=== PATIENT | female | born 1945 ===

== ENCOUNTER 2017-07-22 12:36 | Inpatient (IN) | payer MEDICARE ==
[2017-07-22 12:44] VITALS: BMI 26.4
[2017-07-22] MEDS ORDERED: Sodium Chloride 0.9% 500 ML IV STA (13:09)
--- NOTE | 2017-07-22 13:21 | ED PDOC ---
Arrival/HPI - General Historian: Patient, Family (daughter) - History of Present Illness Time/Duration: Other (see hpi) Context: Home - General Chief Complaint: GI Problem Time Seen by Provider: 07/22/17 12:37 - History of Present Illness Narrative History of Present Illness (Text): 07/22/17 13:00 This 72 yo female with pmh HT, hyperlipidemia, presents to this ED c/o nausea, and diarrhea since yesterday. Patient stated she developed epigastric pain last night. Patient noted she later developed nausea, and watery diarrhea. Patient has had at least 10 BM without rectal bleeding. Today, patient feels weak, and unable to ambulate due to her feeling generalized weakness. She stated she does not feel well, she feels dizzy, and she feels she is going to "pass out". Patient noted epigastric pain has improved. Denies recent travel, sick contact , fever, sob, cp, urinary symptoms, vaginal discharge, rectal bleeding, vaginal bleeding, hematuria, cms, REYES, or local focal weakness. (Kedar Galicia) Past Medical History - Provider Review Nursing Documentation Reviewed: Yes - Infectious Disease Hx of Infectious Diseases: None - Tetanus Immunization Tetanus Immunization: Unknown - Cardiac Hx Cardiac Disorders: Yes Hx Hypertension: Yes - Pulmonary Hx Respiratory Disorders: No - Neurological Hx Neurological Disorder: No - HEENT Hx HEENT Disorder: No - Renal Hx Renal Disorder: No - Endocrine/Metabolic Hx Endocrine Disorders: Yes Hx Diabetes Mellitus Type 2: Yes - Hematological/Oncological Hx Blood Disorders: No - Integumentary Hx Dermatological Disorder: No - Musculoskeletal/Rheumatological Hx Arthritis: Yes (RA) Hx Falls: No Other/Comment: Rheumatoid arthritis - Gastrointestinal Hx Gastrointestinal Disorders: No - Genitourinary/Gynecological Hx Urinary Tract Infection: Yes - Psychiatric Hx Psychophysiologic Disorder: No Hx Substance Use: No - Surgical History Hx Appendectomy: Yes Hx Hysterectomy: Yes Hx Tonsillectomy: Yes Other/Comment: endoscopy and colonoscopy - Anesthesia Hx Anesthesia: Yes Hx Anesthesia Reactions: No Hx Malignant Hyperthermia: No - Suicidal Assessment Feels Threatened In Home Enviroment: No Family/Social History - Physician Review Nursing Documentation Reviewed: Yes Family/Social History: Other (non-contributory) Smoking Status: Never Smoked Hx Alcohol Use: No Hx Substance Use: No Hx Substance Use Treatment: No Allergies/Home Meds Allergies/Adverse Reactions: Allergies No Known Allergies Allergy (Verified 03/28/15 22:43) Home Medications: Home Meds Medication Instructions Recorded Confirmed Folic Acid 2,000 mcg PO DAILY 03/01/13 07/22/17 Meloxicam 7.5 mg PO DAILY PRN 03/01/13 07/22/17 Fenofibric Acid (Choline) 135 mg PO DAILY 03/28/15 07/22/17 [Trilipix] Gabapentin 300 mg PO BID 03/28/15 07/22/17 Amlodipine Bes/Olmesartan Med 1 tab PO DAILY 07/22/17 07/22/17 [Marce 5-20 mg Tablet] Cholecalciferol [Vitamin D 1000 IU] 1 tab PO DAILY 07/22/17 07/22/17 Glimepiride [amaRYL] 1 tab PO BID 07/22/17 07/22/17 Linagliptin/Metformin HCl 1 tab PO BID 07/22/17 07/22/17 [Jentadueto 2.5 mg-1000 mg Tab] Methotrexate [Methotrexate] 1 vial INJ Q7D 07/22/17 07/22/17 Review of Systems - Review of Systems Constitutional: Fatigue. absent: Weight Change, Fevers, Night Sweats Eyes: Normal ENT: Normal Respiratory: Normal. absent: SOB, Cough Cardiovascular: Normal. absent: Chest Pain, Palpitations Gastrointestinal: Abdominal Pain (epigastric pain), Diarrhea, Nausea, Anorexia. absent: Constipation, Vomiting, Hematochezia, Hematemesis, Food Intolerance Genitourinary Female: Normal. absent: Dysuria, Frequency, Hematuria, Urine Output Changes, Vaginal Bleeding, Vaginal Discharge Musculoskeletal: Normal. absent: Back Pain, Neck Pain Skin: Normal. absent: Rash Neurological: Dizziness. absent: Headache, Focal Weakness, Gait Changes, Speech Changes, Facial Droop, Disequilibrium, Seizure Endocrine: Normal Hemo/Lymphatic: Normal Psychiatric: Normal Physical Exam Temperature: Afebrile Blood Pressure: Normal Pulse: Regular Respiratory Rate: Normal Appearance: Positive for: Well-Appearing, Non-Toxic, Comfortable Pain Distress: None Mental Status: Positive for: Alert and Oriented X 3 Finger Stick Blood Glucose: 295 - Systems Exam Head: Present: Atraumatic, Normocephalic Pupils: Present: PERRL Extroacular Muscles: Present: EOMI Conjunctiva: Present: Normal Mouth: Present: Moist Mucous Membranes Neck: Present: Normal Range of Motion Respiratory/Chest: Present: Clear to Auscultation, Good Air Exchange. No: Respiratory Distress, Accessory Muscle Use Cardiovascular: Present: Regular Rate and Rhythm, Normal S1, S2. No: Murmurs Abdomen: Present: Normal Bowel Sounds, Scars, Other (s/p appendectomy). No: Tenderness, Distention, Peritoneal Signs, Rebound, Guarding Back: Present: Normal Inspection Upper Extremity: Present: Normal Inspection. No: Cyanosis, Edema Lower Extremity: Present: Normal Inspection. No: Edema Neurological: Present: GCS=15, CN II-XII Intact, Speech Normal Skin: Present: Warm, Dry, Normal Color. No: Rashes Psychiatric: Present: Alert, Oriented x 3, Normal Insight, Normal Concentration Vital Signs Temp Pulse Resp BP Pulse Ox 07/22/17 15:14 98.1 F 102 H 18 142/85 99 07/22/17 14:15 106 H 18 140/116 H 100 07/22/17 14:06 107 H 16 148/94 H 98 07/22/17 13:57 116 H 20 157/99 H 98 07/22/17 13:42 100.6 F H 07/22/17 12:46 98.6 F 118 H 18 139/93 H 96 Medical Decision Making Re-evaluation Time: 17:00 Reassessment Condition: Re-examined, Improving,but remains with symptoms - Lab Interpretations I have reviewed the lab results: Yes Interpretation: Abnormal lab values - EKG Interpretation Interpreted by ED Physician: Yes (sinus tachycardia @ [address] changes) Type: 12 lead EKG Comparison: No previous EKG avail. ED Course and Treatment: 07/22/17 14:35 Patient seen and evaluated with PA. On exam, the patient currently with no peritoneal signs, MILD epigastric pain. She is tachycardic, but not hypotensive. Lactate elevated associated with tachycardia and fever. CODE SEPSIS initiated and iv fluid bolus ordered as well as iv antibiotics. Patient currently appears comfortable, in no respiratory distress. CT pending. 07/22/17 16:59 CT results reviewed. Based on history of sudden onset of epigastric pain, intermittent, suspect possible cholelithiasis. Surgery consulted as there is history of fever and elevated lactate. Patient admitted to hospitalist service, covering for patient's PMD. Treatment plan reviewed with patient and family. (Don Flowers) 07/22/17 17:00 I had spoke with Dr. Duvall regarding Sepsis criteria, abnormal CT scan. We reviewed labs, ct scan report. He agrees with plan for admission. 07/22/17 17:04 I spoke with patient and daughter regarding CT scan result, and labs report. Patient and family member agrees with plan or admission. (Kedar Galicia) - Lab Interpretations Lab Results: 07/22/17 13:30 07/22/17 13:30 Lab Results 07/22/17 14:20: Urine Color Yellow, Urine Appearance Sl cloudy, Urine pH 5.5, Ur Specific [place] 1.025, Urine Protein Trace H, Urine Glucose (UA) 500 H, Urine Ketones Trace H, Urine Blood Negative, Urine Nitrate Negative, Urine Bilirubin Negative, Urine Urobilinogen 0.2, Ur Leukocyte Esterase Negative, Urine RBC 0 - 2, Urine WBC 0 - 2, Ur Epithelial Cells 0 - 2, Urine Bacteria Trace, Hyaline Casts 0 - 2 07/22/17 13:30: Sodium 136, Chloride 100, Potassium 4.4, Carbon Dioxide 23, Anion Gap 17, BUN 16, Creatinine 0.7, Est GFR ( Amer) > 60, Est GFR (Non- Af Amer) > 60, Random Glucose 279 H, Calcium 9.4, Phosphorus 3.1, Magnesium 1.3 L, Total Bilirubin 1.0, AST 30, ALT 31, Alkaline Phosphatase 98, Lactate Dehydrogenase 457, Total Creatine Kinase 97, Troponin I < 0.01, NT-Pro-B Natriuret Pep 99.0, Total Protein 7.8, Albumin 4.4, Globulin 3.4, Albumin/ Globulin Ratio 1.3, Lipase 151 07/22/17 13:30: pO2 32, VBG pH 7.34, VBG pCO2 48.0, VBG HCO3 25.9, VBG Total CO2 27.4, VBG O2 Sat (Calc) 65.1 H, VBG Base Excess -0.4 L, VBG Potassium 5.6 H , Sodium 134.0, Chloride 99.0, Glucose 305 H, Lactate 3.9 H, FiO2 21.0, Venous Blood Potassium 5.6 H 07/22/17 13:30: PT 10.6, INR 0.98, APTT 26.6 07/22/17 13:30: WBC 8.8, RBC 4.83, Hgb 14.5, Hct 42.4, MCV 87.8, MCH 30.0, MCHC 34.2, RDW 14.0, Plt Count 240, MPV 10.9, Gran % 81.1 H, Lymph % (Auto) 12.4 L, [place] % (Auto) 6.2 H, Eos % (Auto) 0.1 L, Baso % (Auto) 0.2, Gran # 7.16 H, Lymph # 1.1 L, [place] # 0.6, Eos # 0.0, Baso # 0.02 - RAD Interpretation Narrative RAD Interpretations (Text): 07/22/17 13:27 Accession No. : [id number] Patient Name / ID : ROSE RAMIREZ / [id number] Exam Date : 07/22/2017 13:15:35 ( Approved ) Study Comment : Sex / Age : F / 72Y Creator : Pete Kumar MD Dictator : Pete Kumar MD [employer] : [employer] Dresser : Pete Kumar MD Approver2 : Report Date : 07/22/2017 13:25:09 My Comment : HISTORY: Sepsis Patient COMPARISON: No prior. FINDINGS: LUNGS: No acute infiltrate bilaterally. Improved inspiratory volume is noted bilaterally. PLEURA: No significant pleural effusion identified, no pneumothorax apparent. CARDIOVASCULAR: Normal. OSSEOUS STRUCTURES: No significant abnormalities. VISUALIZED UPPER ABDOMEN: Normal. OTHER FINDINGS: None. IMPRESSION: Increased inspiratory volume is apparent. No interval acute cardiopulmonary disease appreciable. 07/22/17 17:00 PROCEDURE: CT Abdomen and Pelvis without intravenous contrast HISTORY: epigastric pain COMPARISON: Abdomen pelvis CT examination 03/26/2017. TECHNIQUE: Helical CT of the abdomen and pelvis was performed without oral or intravenous contrast as per referring physician request . Contrast Dose: None Radiation dose: Total exam DLP = 831.70 mGy-cm. This CT exam was performed using one or more of the following dose reduction techniques: Automated exposure control, adjustment of the mA and/or kV according to patient size, and/or use of iterative reconstruction technique. FINDINGS: LOWER THORAX: Unremarkable. LIVER: Unremarkable. No gross lesion or ductal dilatation. GALLBLADDER AND BILE DUCTS: Distended with limited cholelithiasis questioned at the dependent neck. No mural thickening or pericholecystic fluid collection to associated pole cholecystitis radiographically. Clinically correlate further. PANCREAS: Unremarkable. No gross lesion or ductal dilatation. SPLEEN: Unremarkable. ADRENALS: Unremarkable. No mass. KIDNEYS AND URETERS: Punctate intrarenal calculus identified in the upper pole right kidney which is nonobstructive. None is seen at the left. Left kidney appears unremarkable. VASCULATURE: Unremarkable. No aortic aneurysm. BOWEL: Limited sigmoid diverticulosis without definite diverticulitis. No small or large bowel obstruction. The stomach appears collapsed. APPENDIX: Unremarkable. Normal appendix. PERITONEUM: Unremarkable. No free fluid. No free air. LYMPH NODES: Unremarkable. No enlarged lymph nodes. BLADDER: Unremarkable. REPRODUCTIVE: Unremarkable. BONES: Prior hysterectomy. OTHER FINDINGS: Left buttocks injection granuloma. IMPRESSION: 1. Questionable cholelithiasis within a distended gallbladder with no other acute findings associated by standard CT criteria. Clinically correlate for cholecystitis nevertheless. 2. Punctate nonobstructing intrarenal calculus right kidney. 3. Nonacute sigmoid diverticulosis limited in evaluation due lack of oral and intravenous contrast agents. 4. Prior hysterectomy. 5. Overall findings are similar to prior abdomen pelvis CT exam dated 2016. (Kedar Galicia) Radiology Orders: 07/22/17 13:06 CHEST PORTABLE [RAD] Stat 07/22/17 13:15 ABD & PELVIS W/O PO OR IV CONT [CT] Stat 07/22/17 14:01 HEAD W/O CONTRAST [CT] Stat 07/22/17 14:02 CHEST W/O CONTRAST [CT] Stat - Medication Orders Current Medication Orders: Acetaminophen (Tylenol 325mg Tab) 650 mg PO Q6 PRN PRN Reason: Fever >100.4 F Amlodipine Besylate (Norvasc) 5 mg PO DAILY [facility] Cholecalciferol (Vitamin D) 1,000 iu PO DAILY [facility] Folic Acid (Folic Acid) 2 mg PO DAILY [facility] Gabapentin (Neurontin) 300 mg PO BID [facility] PRN Reason: Protocol Metronidazole (Flagyl) 500 mg in 100 mls @ 100 mls/hr IVPB Q8 [facility] PRN Reason: Protocol Ceftriaxone Sodium (Rocephin 1 Gram Ivpb) 1 gm in 100 mls @ 100 mls/hr IVPB DAILY [facility] PRN Reason: Protocol Sodium Chloride (Sodium Chloride 0.9%) 1,000 mls @ 110 mls/hr IV .Q9H6M [facility] Insulin Human Regular (Humulin R) 0 units SC ACHS [facility] PRN Reason: Protocol Losartan Potassium (Cozaar) 50 mg PO DAILY [facility] Meloxicam (Mobic) 7.5 mg PO DAILY PRN PRN Reason: Pain Ondansetron HCl (Zofran Inj) 4 mg IVP Q6 PRN PRN Reason: Nausea/Vomiting Pantoprazole Sodium (Protonix Ec Tab) 40 mg PO DAILY [facility] Discontinued Medications Acetaminophen (Tylenol 325mg Tab) 650 mg PO ONCE STA Stop: 07/22/17 14:35 Last Admin: 07/22/17 15:17 Dose: Not Given Non-Admin Reason: Patient Refused Sodium Chloride (Sodium Chloride 0.9%) 500 mls @ 999 mls/hr IV .Q31M STA Stop: 07/22/17 13:39 Last Admin: 07/22/17 13:36 Dose: 999 mls/hr eMAR Start Stop Document 07/22/17 13:36 SF (Rec: 07/22/17 13:37 SF [id number] Intravenous Solution Start Date 07/22/17 Start Time 13:37 End Date 07/22/17 End time 14:07 Total Infusion Time 30 Sodium Chloride (Sodium Chloride 0.9%) 1,700 mls @ 999 mls/hr IV .Q1H43M STA Stop: 07/22/17 15:40 Last Admin: 07/22/17 14:10 Dose: 999 mls/hr eMAR Start Stop Document 07/22/17 14:10 CNR (Rec: 07/22/17 14:10 CNR [id number]) Intravenous Solution Start Date 07/22/17 Start Time 14:10 Metronidazole (Flagyl) 500 mg in 100 mls @ 100 mls/hr IVPB STAT STA PRN Reason: Protocol Stop: 07/22/17 15:20 Last Admin: 07/22/17 17:36 Dose: 100 mls/hr eMAR Start Stop Document 07/22/17 17:36 OCS (Rec: 07/22/17 17:37 OCS [id number]) Intravenous Solution Start Date 07/22/17 Start Time 17:37 Ceftriaxone Sodium (Rocephin 1 Gram Ivpb) 1 gm in 100 mls @ 200 mls/hr IVPB STAT STA PRN Reason: Protocol Stop: 07/22/17 14:51 Last Admin: 07/22/17 14:33 Dose: 200 mls/hr eMAR Start Stop Document 07/22/17 14:33 GMD (Rec: 07/22/17 14:33 GMD [id number]) Intravenous Solution Start Date 07/22/17 Start Time 14:33 End Date 07/22/17 End time 15:03 Total Infusion Time 30 Ondansetron HCl (Zofran Inj) 4 mg IVP STAT STA Stop: 07/22/17 13:14 Last Admin: 07/22/17 13:38 Dose: 4 mg IVP Administration Document 07/22/17 13:38 CNR (Rec: 07/22/17 13:39 CNR [facility] [id number]) Charges for Administration # of IVP Administrations 1 Disposition/Present on Arrival - Present on Arrival Any Indicators Present on Arrival: No History of DVT/PE: No History of Uncontrolled Diabetes: No Urinary Catheter: No History of Decub. Ulcer: No History Surgical Site Infection Following: None - Disposition Have Diagnosis and Disposition been Completed?: Yes Disposition Time: 17:00 - Disposition Diagnosis: Sepsis, Abnormal gall bladder diagnostic imaging, Diarrhea Disposition: HOSPITALIZED Patient Problems: Current Active Problems Problem Status Onset Abnormal gall bladder diagnostic imaging Acute Diarrhea Acute Sepsis Acute Condition: GOOD
--- NOTE | 2017-07-22 13:26 | RAD ---
HISTORY: Sepsis Patient COMPARISON: No prior. FINDINGS: LUNGS: No acute infiltrate bilaterally. Improved inspiratory volume is noted bilaterally. PLEURA: No significant pleural effusion identified, no pneumothorax apparent. CARDIOVASCULAR: Normal. OSSEOUS STRUCTURES: No significant abnormalities. VISUALIZED UPPER ABDOMEN: Normal. OTHER FINDINGS: None. IMPRESSION: Increased inspiratory volume is apparent. No interval acute cardiopulmonary disease appreciable.
[2017-07-22 13:51] LABS: VENOUS BLOOD GAS BASE EXCESS -0.4 mmol/L (0.0-2.0); VENOUS BLOOD PH 7.34 (7.32-7.43)
[2017-07-22 13:53] LABS: BASO # 0.02 K/mm3 (0.0-2.0); BASO % 0.2 % (0.0-3.0); EOS % 0.1 % (1.5-5.0); GRAN # 7.16 (1.4-6.5); GRAN % 81.1 % (50.0-68.0); HEMATOCRIT 42.4 % (36.0-48.0); LYMPH # 1.1 (1.2-3.4); LYMPH % 12.4 % (22.0-35.0); MEAN CELL VOLUME 87.8 fl (80.0-105.0); MEAN CORPUSCULAR HGB CONC 34.2 g/dl (31.0-37.0); MEAN PLATELET VOLUME 10.9 fl (7.0-11.0); MONO # 0.6 (0.1-0.6); MONO % 6.2 % (1.0-6.0); WHITE BLOOD COUNT 8.8 10^3/ul (4.5-11.0)
[2017-07-22 14:02] LABS: INR 0.98 (0.93-1.08); PARTIAL THROMBOPLASTIN TIME 26.6 Seconds (23.7-30.8)
[2017-07-22 14:03] LABS: ALB/GLOB RATIO 1.3 (1.1-1.8); ALKALINE PHOSPHATASE 98 U/L (38-126); ALT/SGPT 31 U/L (7-56); AST/SGOT 30 U/L (14-36); BLOOD UREA NITROGEN 16 mg/dL (7-21); CALCIUM 9.4 mg/dL (8.4-10.5); CARBON DIOXIDE 23 mmol/L (21-33); CHLORIDE 100 mmol/L (98-107); GFR AFRICAN-AMERICAN > 60; GLUCOSE,RANDOM 279 mg/dL (70-110); LIPASE 151 U/L (23-300); MAGNESIUM 1.3 mg/dL (1.7-2.2); PHOSPHOROUS 3.1 mg/dL (2.5-4.5); POTASSIUM 4.4 mmol/L (3.6-5.0); SODIUM 136 mmol/L (132-148); TOTAL PROTEIN 7.8 g/dL (5.8-8.3)
[2017-07-22 14:17] LABS: TROPONIN I < 0.01 ng/mL
[2017-07-22] MEDS ORDERED: metroNIDAZOLE IV 500 mg/100 ml 500 MG/100 ML BAG IVPB STA (14:21)
[2017-07-22] MEDS ORDERED: cefTRIAXone 1 gm 1 GM/100 ML BAG IVPB STA (14:22)
--- NOTE | 2017-07-22 14:32 | PCM.SEPTIC ---
Sepsis Progress Note - Reassessment Type Date of Evaluation: 07/22/17 Time of Evaluation: 07:30 Reassessment Type: Non-invasive reassessment - Non Invasive Reassessment Were the most recent vital sign reviewed: Yes Vital Sign (Latest): Temp Pulse Resp BP Pulse Ox 100.6 F H 106 H 18 140/116 H 100 07/22/17 13:42 07/22/17 14:15 07/22/17 14:15 07/22/17 14:15 07/22/17 14:15 Cardiovascular: Yes: Regular Rate, Rhythm Respiratory: Yes: Normal Breath Sounds Capillary Refill: Normal (Less than 2 sec) Skin: Normal Color
[2017-07-22 14:37] LABS: PH,URINE 5.5 (4.7-8.0); URINE BILIRUBIN NEGATIVE (NEGATIVE); URINE BLOOD NEGATIVE (NEGATIVE); URINE GLUCOSE (UA) 500 mg/dL (NEGATIVE); URINE KETONE TRACE mg/dL (NEGATIVE); URINE LEUKOCYTE ESTERASE NEGATIVE Leu/uL (NEGATIVE); URINE PROTEIN TRACE mg/dL (<30 mg/dL); URINE UROBILINOGEN 0.2 E.U./dL (<1 E.U./dL)
[2017-07-22 14:40] LABS: URINE APPEARANCE SL CLOUDY (CLEAR); URINE COLOR YELLOW (YELLOW)
--- NOTE | 2017-07-22 14:41 | CT ---
PROCEDURE: CT Abdomen and Pelvis without intravenous contrast HISTORY: epigastric pain COMPARISON: Abdomen pelvis CT examination 03/26/2017. TECHNIQUE: Helical CT of the abdomen and pelvis was performed without oral or intravenous contrast as per referring physician request . Contrast Dose: None Radiation dose: Total exam DLP = 831.70 mGy-cm. This CT exam was performed using one or more of the following dose reduction techniques: Automated exposure control, adjustment of the mA and/or kV according to patient size, and/or use of iterative reconstruction technique. FINDINGS: LOWER THORAX: Unremarkable. LIVER: Unremarkable. No gross lesion or ductal dilatation. GALLBLADDER AND BILE DUCTS: Distended with limited cholelithiasis questioned at the dependent neck. No mural thickening or pericholecystic fluid collection to associated pole cholecystitis radiographically. Clinically correlate further. PANCREAS: Unremarkable. No gross lesion or ductal dilatation. SPLEEN: Unremarkable. ADRENALS: Unremarkable. No mass. KIDNEYS AND URETERS: Punctate intrarenal calculus identified in the upper pole right kidney which is nonobstructive. None is seen at the left. Left kidney appears unremarkable. VASCULATURE: Unremarkable. No aortic aneurysm. BOWEL: Limited sigmoid diverticulosis without definite diverticulitis. No small or large bowel obstruction. The stomach appears collapsed. APPENDIX: Unremarkable. Normal appendix. PERITONEUM: Unremarkable. No free fluid. No free air. LYMPH NODES: Unremarkable. No enlarged lymph nodes. BLADDER: Unremarkable. REPRODUCTIVE: Unremarkable. BONES: Prior hysterectomy. OTHER FINDINGS: Left buttocks injection granuloma. IMPRESSION: 1. Questionable cholelithiasis within a distended gallbladder with no other acute findings associated by standard CT criteria. Clinically correlate for cholecystitis nevertheless. 2. Punctate nonobstructing intrarenal calculus right kidney. 3. Nonacute sigmoid diverticulosis limited in evaluation due lack of oral and intravenous contrast agents. 4. Prior hysterectomy. 5. Overall findings are similar to prior abdomen pelvis CT exam dated 03/26/2017.
[2017-07-22 14:43] LABS: URINE BACTERIA TRACE (NEG); URINE EPITHELIAL CELLS 0 - 2 /hpf (0-5); URINE RBC 0 - 2 /hpf (0-2); URINE WBC 0 - 2 /hpf (0-6)
--- NOTE | 2017-07-22 15:16 | CP.PCM.HP ---
<Rodrigo Ramos - Last Filed: 07/22/17 17:48> History of Present Illness - History of Present Illness History of Present Illness: H&P. Dr. Duvall 72yo F with PMHx of HTN, DM, RA, sigmoid diverticulosis here for evaluation of Nausea, diarrhea and epigastric pain. Patient states that she had nausea, epigastric pain which started yesterday at 5PM. Pain described as sharp, does not radiate, waxing and waning, resolved currently. She states that she also c/ o diarrhea which started last night at around 9PM and reports about 10 episodes of loose, liquid, diarrhea, non-bloody, non-dark, foul smelling. She does report nausea but no vomiting. She does report dizziness which started today around noon. She denies any sick contacts, no recent travel. She denies any fevers or chills. She does report a similar epigastric pain about a month ago. Denies CP/SOB. No Headache. Reports having an screening EGD/Colonoscopy about [address] Mota. Reports negative findings. PMD: Dr. Nima Alvarado PMHx: HTN, DM, RA, Sigmoid diverticulosis PSHx: Hysterectomy, Appendectomy, Tonsilectomy, R breast cyst removal (benign) Family Hx: Son-DM, [place]. Father-Cardiac disease Social Hx: Lives with son. Denies tobacco use, Denies ETOH, Denies illicit drugs NKDA Present on Admission - Present on Admission Any Indicators Present on Admission: No Review of Systems - Review of Systems All systems: reviewed and no additional remarkable complaints except - Constitutional Constitutional: absent: Chills, Fever, Headache - EENT Eyes: absent: Blurred Vision Ears: absent: Ear Pain Nose/Mouth/Throat: absent: Epistaxis - Cardiovascular Cardiovascular: Diaphoresis. absent: Chest Pain, Dyspnea, Edema - Respiratory Respiratory: absent: Dyspnea - Gastrointestinal Gastrointestinal: Abdominal Pain, Diarrhea, Nausea. absent: Hematemesis, Hematochezia, Vomiting - Genitourinary Genitourinary: absent: Dysuria - Musculoskeletal Musculoskeletal: absent: Back Pain - Neurological Neurological: Dizziness. absent: Confusion, Focal Weakness - Psychiatric Psychiatric: absent: Anxiety, Confusion Past Patient History - Infectious Disease Hx of Infectious Diseases: None - Tetanus Immunizations Tetanus Immunization: Unknown - Past Medical History & Family History Past Family History: Reviewed and not pertinent - Past Social History Smoking Status: Never Smoked Alcohol: None Drugs: Denies - CARDIAC Hx Cardiac Disorders: Yes Hx Hypertension: Yes - PULMONARY Hx Respiratory Disorders: No - NEUROLOGICAL Hx Neurological Disorder: No - HEENT Hx HEENT Problems: No - RENAL Hx Chronic Kidney Disease: No - ENDOCRINE/METABOLIC Hx Endocrine Disorders: Yes Hx Diabetes Mellitus Type 2: Yes - HEMATOLOGICAL/ONCOLOGICAL Hx Blood Disorders: No - INTEGUMENTARY Hx Dermatological Problems: No - MUSCULOSKELETAL/RHEUMATOLOGICAL Hx Arthritis: Yes (RA) Hx Falls: No Other/Comment: Rheumatoid arthritis - GASTROINTESTINAL Hx Gastrointestinal Disorders: No - GENITOURINARY/GYNECOLOGICAL Hx Urinary Tract Infection: Yes - PSYCHIATRIC Hx Psychophysiologic Disorder: No Hx Substance Use: No - SURGICAL HISTORY Hx Appendectomy: Yes Hx Hysterectomy: Yes Hx Tonsillectomy: Yes Other/Comment: endoscopy and colonoscopy - ANESTHESIA Hx Anesthesia: Yes Hx Anesthesia Reactions: No Hx Malignant Hyperthermia: No Meds Allergies/Adverse Reactions: Allergies Allergy/AdvReac Type Severity Reaction Status Date / Time No Known Allergies Allergy Verified 03/28/15 22:43 Physical Exam - Constitutional Appears: Well, No Acute Distress - Head Exam Head Exam: ATRAUMATIC, NORMAL INSPECTION, NORMOCEPHALIC - Eye Exam Eye Exam: EOMI, Normal appearance - ENT Exam ENT Exam: Mucous Membranes Dry - Respiratory Exam Respiratory Exam: Clear to Auscultation Bilateral, NORMAL BREATHING PATTERN. absent: Decreased Breath Sounds, Rales, Rhonchi, Wheezes, Respiratory Distress - Cardiovascular Exam Cardiovascular Exam: RRR, +S1, +S2. absent: JVD - GI/Abdominal Exam GI & Abdominal Exam: Normal Bowel Sounds, Soft. absent: Distended, Firm, Guarding, Rigid, Tenderness - Extremities Exam Extremities exam: Positive for: normal inspection. Negative for: calf tenderness, pedal edema - Back Exam Back exam: NORMAL INSPECTION - Neurological Exam Neurological exam: Alert, Oriented x3 - Psychiatric Exam Psychiatric exam: Normal Affect, Normal Mood - Skin Skin Exam: Dry, Intact, Normal Color, Warm Results - Vital Signs Recent Vital Signs: Last Vital Signs Temp 100.6 F H 07/22/17 13:42 Pulse 106 H 07/22/17 14:15 Resp 18 07/22/17 14:15 BP 140/116 H 07/22/17 14:15 Pulse Ox 100 07/22/17 14:15 - Labs Result Diagrams: 07/22/17 13:30 07/22/17 13:30 Assessment & Plan - Assessment and Plan (Free Text) Assessment: 72yo F with PMHx of HLD, DM, HTN, RA, sigmoid diverticulosis here for evaluation of nausea, diarrhea and epigastric pain 1. SIRS No leukocytosis Tachycardia no hypotension Lactate elevated, repeat in 6 hours CXR negative UA negative f/u Cxs f/u stool studies IVF IV Abx: Rocephin, Flagyl 2. Nausea, Diarrhea, Dizziness likely mild dehydration consider gastroenteritis CT - cholelithiasis, distended GB, no evidence of cholecystitis Zofran continue IVF f/u Abd US CLD for now. ADAT Stool studies GI consulted, appreciate recs f/u AM labs 3. Epigastric pain in the setting of cholelithiasis Surgery following f/u Abd US f/u serial Troponins EKG - no acute findings on Tele 4. Hx of DM f/u HBa1c Accuchecks hold home meds ISS 5. Hx of HTN Continue home meds Losartan instead of olmesartan VS Q6 6. Hx of RA continue mobic prn 7. Hx of HLD f/u lipid panel hold home meds for now 8. PPx Protonix SCDs Discussed case with Dr. Jadiel Ramos PGY1 <Jacki Duvall - Last Filed: 07/22/17 18:51> Results - Vital Signs Recent Vital Signs: Last Vital Signs Temp 98.1 F 07/22/17 15:14 Pulse 102 H 07/22/17 15:14 Resp 18 07/22/17 15:14 BP 142/85 07/22/17 15:14 Pulse Ox 99 07/22/17 15:14 - Labs Result Diagrams: 07/22/17 13:30 07/22/17 13:30 Labs: Laboratory Results - last 24 hr 07/22/17 07/22/17 17:55 17:55 pO2 41 VBG pH 7.31 L VBG pCO2 48.0 VBG HCO3 24.2 VBG Total CO2 25.7 VBG O2 Sat (Calc) 80.5 H VBG Base Excess -2.5 L VBG Potassium 4.0 Sodium 137.0 Chloride 106.0 Glucose 242 H Lactate 3.0 H FiO2 21.0 Lactic Acid 2.8 H Venous Blood Potassium 4.0 Attending/Attestation - Attestation I have personally seen and examined this patient.: Yes I have fully participated in the care of the patient.: Yes I have reviewed all pertinent clinical information: Yes Notes (Text): 07/22/17 18:47 72 year old female with past medical history of hypertension and diabetes who presents with nausea, epigastric pain and diarrhea x 1 day. In ER she was found to have SIRS with elevated lactate, tachycardia and hypertension. CT abd/pelvis showed cholelithiasis with distended gallbladder. Surgery and GI evaluation are requested. Continue with liquid diet as tolerated. Continue with iv fluids, protonix and antibiotics while awaiting cultures. US abdomen study is ordered as well as stool workup for diarrhea. Jacki Duvall MD Hospitalist.
--- NOTE | 2017-07-22 16:48 | CT ---
PROCEDURE: CT HEAD WITHOUT CONTRAST. HISTORY: dizziness COMPARISON: 03/31/2015 TECHNIQUE: Axial computed tomography images were obtained through the head/brain without intravenous contrast. Radiation dose: Total exam DLP = 941.65 mGy-cm. This CT exam was performed using one or more of the following dose reduction techniques: Automated exposure control, adjustment of the mA and/or kV according to patient size, and/or use of iterative reconstruction technique. FINDINGS: HEMORRHAGE: No intracranial hemorrhage. BRAIN: No mass effect or edema. No atrophy or chronic microvascular ischemic changes. TINY CORTICAL BASED CALCIFICATION AGAIN NOTED IN THE PARIETAL LOBE BILATERALLY. NODULAR CORTICAL CALCIFICATION NOTED IN THE HIGH LEFT FRONTAL LOBE. NO CHANGE SINCE PRIOR EXAMINATION. VENTRICLES: Unremarkable. No hydrocephalus. CALVARIUM: Unremarkable. PARANASAL SINUSES: Mild chronic ethmoid sinusitis. MASTOID AIR CELLS: Unremarkable as visualized. No inflammatory changes. OTHER FINDINGS: None. IMPRESSION: Mild chronic ethmoid sinusitis. No intracranial mass, hemorrhage or evidence of acute infarct.
--- NOTE | 2017-07-22 16:53 | CT ---
PROCEDURE: CT Chest without contrast HISTORY: epigastric pain COMPARISON: None. TECHNIQUE: Contiguous axial images were obtained through the chest without intravenous contrast enhancement. Sagittal and coronal reconstructions were performed. Radiation dose (DLP): 601.41 mGy-cm. This CT exam was performed using one or more of the following dose reduction techniques: Automated exposure control, adjustment of the mA and/or kV according to patient size, and/or use of iterative reconstruction technique. FINDINGS: LUNGS: No pulmonary infiltrate. Small calcified granuloma in the right lower lobe (Series 3, image 37). No other pulmonary mass. MEDIASTINUM: Unremarkable thoracic aorta. No aneurysm. Normal sized heart. Main pulmonary artery unremarkable. No vascular congestion. No lymphadenopathy. There are nodular mediastinal calcifications consistent with old granulomatous disease. PLEURA: No pleural fluid. No pneumothorax. BONES: No fracture. No destructive lesion. UPPER ABDOMEN: Grossly unremarkable. OTHER FINDINGS: None. IMPRESSION: Evidence of old granulomatous disease. No acute infiltrate. Otherwise unremarkable.
--- NOTE | 2017-07-22 16:54 | CP.PCM.CON ---
History of Present Illness - History of Present Illness History of Present Illness: HPI: Patient is a 72 y/o female with PMH of sigmoid diverticulosis, RA , DM, HTN, and HLD who presents to the ED with dizziness and epigastric pain. Patient says this started around 5:30 pm last night. Patient describes this pain as sharp and located in the epigastric area. She rates it as a 9/10 intensity at its worst but says she has had no pain since 9:00 am, before she came to the ED. Patient does not associate this pain with any food. Patient states she had chicken noodle soup for lunch about 3.5 hours before the pain started. Patient admits to fever, chills, nausea, and diarrhea. Patient says she had 7-8 episodes of watery, nonbloody diarrhea over night. Patient says she had a similar pain once before about 1 month ago but magallanes not recall eating anything in particular prior to that episode. Patient denies vomiting, chest pain, SOB, leg pain, and leg swelling. PMH: sigmoid diverticulosis, RA, DM, HTN, and HLD Meds: see MAR PSH: Appendectomy, tonsilectomy, hysterectomy, right breast cyst excision Allergies: NKDA FamHx: DM, [place] (son) SocHx: denies tobacco, alcohol, and elicit drug use Review of Systems - Review of Systems All systems: reviewed and no additional remarkable complaints except (as per HPI ) Past Patient History - Infectious Disease Hx of Infectious Diseases: None - Tetanus Immunizations Tetanus Immunization: Unknown - Past Social History Smoking Status: Never Smoked - CARDIAC Hx Cardiac Disorders: Yes Hx Hypertension: Yes - PULMONARY Hx Respiratory Disorders: No - NEUROLOGICAL Hx Neurological Disorder: No - HEENT Hx HEENT Problems: No - RENAL Hx Chronic Kidney Disease: No - ENDOCRINE/METABOLIC Hx Endocrine Disorders: Yes Hx Diabetes Mellitus Type 2: Yes - HEMATOLOGICAL/ONCOLOGICAL Hx Blood Disorders: No - INTEGUMENTARY Hx Dermatological Problems: No - MUSCULOSKELETAL/RHEUMATOLOGICAL Hx Arthritis: Yes (RA) Hx Falls: No Other/Comment: Rheumatoid arthritis - GASTROINTESTINAL Hx Gastrointestinal Disorders: No - GENITOURINARY/GYNECOLOGICAL Hx Urinary Tract Infection: Yes - PSYCHIATRIC Hx Psychophysiologic Disorder: No Hx Substance Use: No - SURGICAL HISTORY Hx Appendectomy: Yes Hx Hysterectomy: Yes Hx Tonsillectomy: Yes Other/Comment: endoscopy and colonoscopy - ANESTHESIA Hx Anesthesia: Yes Hx Anesthesia Reactions: No Hx Malignant Hyperthermia: No Meds Allergies/Adverse Reactions: Allergies Allergy/AdvReac Type Severity Reaction Status Date / Time No Known Allergies Allergy Verified 03/28/15 22:43 Physical Exam - Constitutional Appears: Non-toxic, No Acute Distress - Head Exam Head Exam: NORMAL INSPECTION - Eye Exam Eye Exam: EOMI, Normal appearance - ENT Exam ENT Exam: Mucous Membranes Moist - Respiratory Exam Respiratory Exam: NORMAL BREATHING PATTERN. absent: Accessory Muscle Use, Respiratory Distress - Cardiovascular Exam Cardiovascular Exam: Tachycardia, REGULAR RHYTHM - GI/Abdominal Exam GI & Abdominal Exam: Soft. absent: Distended, Guarding, Mass, Rebound, Tenderness Additional comments: negative Stevenson sign - Extremities Exam Extremities exam: Positive for: normal inspection, pedal pulses present. Negative for: calf tenderness, pedal edema, tenderness - Neurological Exam Neurological exam: Alert, Oriented x3 - Psychiatric Exam Psychiatric exam: Normal Affect, Normal Mood - Skin Skin Exam: Dry, Intact, Normal Color, Warm Results - Vital Signs Recent Vital Signs: Last Vital Signs Temp 98.1 F 07/22/17 15:14 Pulse 102 H 07/22/17 15:14 Resp 18 07/22/17 15:14 BP 142/85 07/22/17 15:14 Pulse Ox 99 07/22/17 15:14 - Labs Result Diagrams: 07/22/17 13:30 07/22/17 13:30 Assessment & Plan - Assessment and Plan (Free Text) Assessment: 72 y/o female with cholelithiasis Plan: - CT abdomen/pelvis shows cholelithiasis with distended gallbladder, non onbsturcting intrarenal calculus of right kidney, sigmoid diverticulosis - follow up abdominal US - serial abdominal exams - IVF - f/u am labs - Further recs per Dr. Jones Cason PGY-1
--- NOTE | 2017-07-22 17:30 | US ---
HISTORY: upper abdominal pain COMPARISON: None. TECHNIQUE: Sonographic evaluation of the abdomen. FINDINGS: LIVER: Measures 14.7 cm. There is mild diffuse increased echogenicity of the liver parenchyma. No mass. No intrahepatic bile duct dilatation. GALLBLADDER: The gallbladder is distended without wall thickening, pericholecystic fluid or gallstones. COMMON BILE DUCT: Measures 6.7 mm. No stones. No dilatation. PANCREAS: Unremarkable as visualized. No mass. No ductal dilatation. RIGHT KIDNEY: Measures 10.4cm. Normal echogenicity. No calculus, mass, or hydronephrosis. LEFT KIDNEY: Measures 11.1cm. Normal echogenicity. No calculus, mass, or hydronephrosis. SPLEEN: Normal in size and contour. No mass. AORTA: No aneurysmal dilatation. IVC: Unremarkable. OTHER FINDINGS: None. IMPRESSION: Diffuse increased echogenicity in the liver may reflect hepatic steatosis however parenchymal infectious/ inflammatory etiologies cannot be entirely excluded. Clinical and laboratory correlation is advised. No cholelithiasis or biliary dilatation.
[2017-07-22] MEDS ORDERED: Meloxicam 7.5 MG TAB PO PRN (17:40)
[2017-07-22] MEDS ORDERED: Magnesium Sulfate 1 gm in D5W 1 GM/100 ML BAG IVPB ONE (18:01)
[2017-07-22 18:24] LABS: VENOUS BLOOD GAS BASE EXCESS -2.5 mmol/L (0.0-2.0); VENOUS BLOOD PH 7.31 (7.32-7.43)
[2017-07-22] MEDS: Sodium Chloride 0.9% 1,000 ML IV SCH (20:51)
[2017-07-22] MEDS: Insulin Regular 1 UNITS/0.01 ML ML SC SCH (21:33)
[2017-07-22] MEDS: metroNIDAZOLE IV 500 mg/100 ml 500 MG/100 ML BAG IVPB SCH (21:38)
[2017-07-22] MEDS ORDERED: Pneumococcal 23-Valent Vaccine IM ONE (22:23)
[2017-07-23] MEDS: Sodium Chloride 0.9% 1,000 ML IV SCH ×2 (05:50→14:05)
[2017-07-23] MEDS: metroNIDAZOLE IV 500 mg/100 ml 500 MG/100 ML BAG IVPB SCH ×3 (06:31→22:28)
[2017-07-23 06:34] LABS: VENOUS BLOOD GAS BASE EXCESS -2.6 mmol/L (0.0-2.0); VENOUS BLOOD PH 7.32 (7.32-7.43)
[2017-07-23 06:43] LABS: BASO # 0.02 K/mm3 (0.0-2.0); BASO % 0.4 % (0.0-3.0); EOS # 0.1 (0.0-0.7); EOS % 1.3 % (1.5-5.0); GRAN # 3.39 (1.4-6.5); GRAN % 62.8 % (50.0-68.0); HEMATOCRIT 36.3 % (36.0-48.0); LYMPH # 1.4 (1.2-3.4); MEAN CELL VOLUME 88.5 fl (80.0-105.0); MEAN CORPUSCULAR HEMOGLOBIN 28.8 pg (25.0-35.0); MEAN CORPUSCULAR HGB CONC 32.5 g/dl (31.0-37.0); MEAN PLATELET VOLUME 10.7 fl (7.0-11.0); MONO # 0.5 (0.1-0.6); MONO % 9.5 % (1.0-6.0); RED CELL DISTRIBUTION WIDTH 14.2 % (11.5-14.5); WHITE BLOOD COUNT 5.4 10^3/ul (4.5-11.0)
[2017-07-23 07:06] LABS: ALB/GLOB RATIO 1.1 (1.1-1.8); ALKALINE PHOSPHATASE 67 U/L (38-126); ALT/SGPT 26 U/L (7-56); AST/SGOT 26 U/L (14-36); BILIRUBIN,TOTAL 0.5 mg/dL (0.2-1.3); BLOOD UREA NITROGEN 10 mg/dL (7-21); CALCIUM 7.9 mg/dL (8.4-10.5); CARBON DIOXIDE 23 mmol/L (21-33); CHLORIDE 107 mmol/L (98-107); CHOLESTEROL 143 mg/dL (130-200); GFR AFRICAN-AMERICAN > 60; GLUCOSE,RANDOM 249 mg/dL (70-110); MAGNESIUM 1.7 mg/dL (1.7-2.2); POTASSIUM 4.2 mmol/L (3.6-5.0); SODIUM 139 mmol/L (132-148); TOTAL PROTEIN 5.9 g/dL (5.8-8.3)
--- NOTE | 2017-07-23 08:19 | CP.PCM.PN ---
Subjective - Date & Time of Evaluation Date of Evaluation: 07/23/17 Time of Evaluation: 08:14 - Subjective Subjective: Progress note for Dr. Goldman Patient seen and evaluated at bedside. Patient doing well with no new complaints at this time. She says she is felling much better today and and the abdominal pain has not come back. She is no longer having diarrhea. Patient denies fever, chills, nausea, and vomiting. Objective - Vital Signs/Intake and Output Vital Signs (last 24 hours): Temp Pulse Resp BP Pulse Ox 98.3 F 78 18 150/82 95 07/23/17 07:45 07/23/17 07:45 07/23/17 07:45 07/23/17 07:45 07/23/17 07:45 Intake and Output: 07/23/17 07/23/17 06:59 18:59 Intake Total 240 60 Balance 240 60 - Medications Medications: Current Medications Acetaminophen (Tylenol 325mg Tab) 650 mg PO Q6 PRN PRN Reason: Fever >100.4 F Amlodipine Besylate (Norvasc) 5 mg PO DAILY [facility] Cholecalciferol (Vitamin D) 1,000 iu PO DAILY [facility] Folic Acid (Folic Acid) 2 mg PO DAILY [facility] Gabapentin (Neurontin) 300 mg PO BID [facility] PRN Reason: Protocol Last Admin: 07/22/17 19:00 Dose: 300 mg Metronidazole (Flagyl) 500 mg in 100 mls @ 100 mls/hr IVPB Q8 [facility] PRN Reason: Protocol Last Admin: 07/23/17 06:31 Dose: 100 mls/hr Ceftriaxone Sodium (Rocephin 1 Gram Ivpb) 1 gm in 100 mls @ 100 mls/hr IVPB DAILY [facility] PRN Reason: Protocol Sodium Chloride (Sodium Chloride 0.9%) 1,000 mls @ 110 mls/hr IV .Q9H6M [facility] Last Admin: 07/23/17 05:50 Dose: Not Given Insulin Human Regular (Humulin R) 0 units SC ACHS [facility] PRN Reason: Protocol Last Admin: 07/22/17 21:33 Dose: Not Given Losartan Potassium (Cozaar) 50 mg PO DAILY [facility] Meloxicam (Mobic) 7.5 mg PO DAILY PRN PRN Reason: Pain Ondansetron HCl (Zofran Inj) 4 mg IVP Q6 PRN PRN Reason: Nausea/Vomiting Pantoprazole Sodium (Protonix Ec Tab) 40 mg PO DAILY [facility] - Labs Labs: 07/23/17 06:10 07/23/17 06:10 PT 10.6 Seconds (9.9-11.8) 07/22/17 13:30 INR 0.98 (0.93-1.08) 07/22/17 13:30 APTT 26.6 Seconds (23.7-30.8) 07/22/17 13:30 - Constitutional Appears: Non-toxic, No Acute Distress - Head Exam Head Exam: NORMAL INSPECTION - Eye Exam Eye Exam: EOMI - ENT Exam ENT Exam: Mucous Membranes Moist - Respiratory Exam Respiratory Exam: NORMAL BREATHING PATTERN. absent: Accessory Muscle Use, Respiratory Distress - Cardiovascular Exam Cardiovascular Exam: REGULAR RHYTHM. absent: Bradycardia, Tachycardia - GI/Abdominal Exam GI & Abdominal Exam: Soft. absent: Distended, Guarding, Tenderness - Extremities Exam Extremities Exam: Normal Inspection. absent: Pedal Edema - Neurological Exam Neurological Exam: Alert, Awake - Psychiatric Exam Psychiatric exam: Normal Affect, Normal Mood - Skin Skin Exam: Dry, Intact, Normal Color, Warm Assessment and Plan - Assessment and Plan (Free Text) Assessment: 72 y/o female with cholelithiasis as seen on CT abdomen/pelvis Plan: - CT abdomen/pelvis shows cholelithiasis with distended gallbladder, non onbsturcting intrarenal calculus of right kidney, sigmoid diverticulosis - abdominal US showed no cholelithiasis or bile duct dilation - no surgical intervention needed at this time - please re-consult as needed - Further recs per Dr. Jones Cason PGY-1
--- NOTE | 2017-07-23 09:06 | CARD ---
APPROVED REPORT EKG Measurement Heart [id number] <Conclusion> Sinus tachycardia Possible Inferior infarct, age undetermined PRWP NSSTW changes Prolonged QTc
[2017-07-23] MEDS: Insulin Regular 1 UNITS/0.01 ML ML SC SCH ×4 (09:20→22:39)
[2017-07-23 10:28] LABS: VENOUS BLOOD PH 7.28 (7.32-7.43)
--- NOTE | 2017-07-23 12:59 | CP.PCM.CON ---
History of Present Illness - History of Present Illness History of Present Illness: 72 year old female with PMH of diverticulosis, rheumatoid arthritis, DM, HTN, dyslipidemia, S/P appendectomy, S/P tonsillectomy, S/P hysterectomy, S/P right breast excision came in to [facility] complaining of nausea and non- blood loose bowel movement for the past 1-2 days. She apparently took some chicken soup at work about 2 days ago, and a few hours later, she started having epigastric pain, nausea and then later loose bowel movements. She did not have vomiting. This persisted until a day later and this prompted her to come the hospital. She also had fever and chills while in the ED with a temperature of 100.6 F. Aside from this she has been complaining of rhinorrhea and sore throat for the past 4-5 days but is starting to improve, has non- productive cough, no dysuria, occasional headache. Infectious diseases consult is requested to further evaluate and manage. Review of Systems - Review of Systems All systems: reviewed and no additional remarkable complaints except (as per HPI ) Past Patient History - Infectious Disease Hx of Infectious Diseases: None - Tetanus Immunizations Tetanus Immunization: Unknown - Past Medical History & Family History Past Family History: Reviewed and not pertinent - Past Social History Smoking Status: Never Smoked - CARDIAC Hx Cardiac Disorders: Yes Hx Hypercholesterolemia: Yes Hx Hypertension: Yes - PULMONARY Hx Respiratory Disorders: No - NEUROLOGICAL Hx Neurological Disorder: No - HEENT Hx HEENT Problems: No - RENAL Hx Chronic Kidney Disease: No - ENDOCRINE/METABOLIC Hx Endocrine Disorders: Yes Hx Diabetes Mellitus Type 2: Yes - HEMATOLOGICAL/ONCOLOGICAL Hx Blood Disorders: No - INTEGUMENTARY Hx Dermatological Problems: No - MUSCULOSKELETAL/RHEUMATOLOGICAL Hx Falls: No - GASTROINTESTINAL Hx Gastrointestinal Disorders: No - GENITOURINARY/GYNECOLOGICAL Hx Urinary Tract Infection: Yes - PSYCHIATRIC Hx Substance Use: No - SURGICAL HISTORY Hx Surgeries: (tonsillectomy, exc r breast cyst benign) Hx Appendectomy: Yes Hx Hysterectomy: Yes Other/Comment: endoscopy and colonoscopy - ANESTHESIA Hx Anesthesia: Yes Hx Anesthesia Reactions: No Hx Malignant Hyperthermia: No Meds Allergies/Adverse Reactions: Allergies Allergy/AdvReac Type Severity Reaction Status Date / Time No Known Allergies Allergy Verified 03/28/15 22:43 - Medications Medications: Current Medications Acetaminophen (Tylenol 325mg Tab) 650 mg PO Q6 PRN PRN Reason: Fever >100.4 F Amlodipine Besylate (Norvasc) 5 mg PO DAILY [facility] Cholecalciferol (Vitamin D) 1,000 iu PO DAILY [facility] Folic Acid (Folic Acid) 2 mg PO DAILY [facility] Gabapentin (Neurontin) 300 mg PO BID [facility] PRN Reason: Protocol Last Admin: 07/22/17 19:00 Dose: 300 mg Metronidazole (Flagyl) 500 mg in 100 mls @ 100 mls/hr IVPB Q8 [facility] PRN Reason: Protocol Last Admin: 07/23/17 06:31 Dose: 100 mls/hr Ceftriaxone Sodium (Rocephin 1 Gram Ivpb) 1 gm in 100 mls @ 100 mls/hr IVPB DAILY [facility] PRN Reason: Protocol Sodium Chloride (Sodium Chloride 0.9%) 1,000 mls @ 110 mls/hr IV .Q9H6M [facility] Last Admin: 07/23/17 05:50 Dose: Not Given Insulin Human Regular (Humulin R) 0 units SC ACHS [facility] PRN Reason: Protocol Last Admin: 07/23/17 09:20 Dose: 3 units Losartan Potassium (Cozaar) 50 mg PO DAILY [facility] Meloxicam (Mobic) 7.5 mg PO DAILY PRN PRN Reason: Pain Ondansetron HCl (Zofran Inj) 4 mg IVP Q6 PRN PRN Reason: Nausea/Vomiting Pantoprazole Sodium (Protonix Ec Tab) 40 mg PO DAILY [facility] Physical Exam - Constitutional Appears: Non-toxic, No Acute Distress - Head Exam Head Exam: NORMAL INSPECTION - ENT Exam ENT Exam: Mucous Membranes Moist - Neck Exam Neck exam: Negative for: Lymphadenopathy, Meningismus - Respiratory Exam Respiratory Exam: Decreased Breath Sounds - Cardiovascular Exam Cardiovascular Exam: +S1, +S2 - GI/Abdominal Exam GI & Abdominal Exam: Soft. absent: Tenderness Results - Vital Signs Recent Vital Signs: Last Vital Signs Temp 98.3 F 07/23/17 07:45 Pulse 78 07/23/17 07:45 Resp 18 07/23/17 07:45 BP 150/82 07/23/17 07:45 Pulse Ox 95 07/23/17 07:45 - Labs Result Diagrams: 07/23/17 06:10 07/23/17 06:10 Labs: Laboratory Results - last 24 hr 07/22/17 07/22/17 07/22/17 17:55 17:55 19:55 WBC RBC Hgb Hct MCV MCH MCHC RDW Plt Count MPV Gran % Lymph % (Auto) [place] % (Auto) Eos % (Auto) Baso % (Auto) Gran # Lymph # [place] # Eos # Baso # pO2 41 VBG pH 7.31 L VBG pCO2 48.0 VBG HCO3 24.2 VBG Total CO2 25.7 VBG O2 Sat (Calc) 80.5 H VBG Base Excess -2.5 L VBG Potassium 4.0 Sodium 137.0 Chloride 106.0 Glucose 242 H Lactate 3.0 H FiO2 21.0 Potassium Carbon Dioxide Anion Gap BUN Creatinine Est GFR ( Amer) Est GFR (Non-Af Amer) POC Glucose (mg/dL) Random Glucose Lactic Acid 2.8 H Calcium Magnesium Total Bilirubin AST ALT Alkaline Phosphatase Troponin I < 0.01 Total Protein Albumin Globulin Albumin/Globulin Ratio Triglycerides Cholesterol LDL Cholesterol Direct HDL Cholesterol Venous Blood Potassium 4.0 07/22/17 07/23/17 07/23/17 21:03 01:40 06:10 WBC RBC Hgb Hct MCV MCH MCHC RDW Plt Count MPV Gran % Lymph % (Auto) [place] % (Auto) Eos % (Auto) Baso % (Auto) Gran # Lymph # [place] # Eos # Baso # pO2 61 H VBG pH 7.32 VBG pCO2 46.0 VBG HCO3 23.7 VBG Total CO2 25.1 VBG O2 Sat (Calc) 94.9 H VBG Base Excess -2.6 L VBG Potassium 3.8 Sodium 137.0 Chloride 107.0 Glucose 271 H Lactate 3.2 H FiO2 21.0 Potassium Carbon Dioxide Anion Gap BUN Creatinine Est GFR ( Amer) Est GFR (Non-Af Amer) POC Glucose (mg/dL) 252 H Random Glucose Lactic Acid Calcium Magnesium Total Bilirubin AST ALT Alkaline Phosphatase Troponin I < 0.01 Total Protein Albumin Globulin Albumin/Globulin Ratio Triglycerides Cholesterol LDL Cholesterol Direct HDL Cholesterol Venous Blood Potassium 3.8 07/23/17 07/23/17 07/23/17 06:10 06:10 07:17 WBC 5.4 D RBC 4.10 Hgb 11.8 L D Hct 36.3 MCV 88.5 MCH 28.8 MCHC 32.5 RDW 14.2 Plt Count 185 MPV 10.7 Gran % 62.8 Lymph % (Auto) 26.0 [place] % (Auto) 9.5 H Eos % (Auto) 1.3 L Baso % (Auto) 0.4 Gran # 3.39 Lymph # 1.4 [place] # 0.5 Eos # 0.1 Baso # 0.02 pO2 VBG pH VBG pCO2 VBG HCO3 VBG Total CO2 VBG O2 Sat (Calc) VBG Base Excess VBG Potassium Sodium 139 Chloride 107 Glucose Lactate FiO2 Potassium 4.2 Carbon Dioxide 23 Anion Gap 13 BUN 10 Creatinine 0.6 Est GFR ( Amer) > 60 Est GFR (Non-Af Amer) > 60 POC Glucose (mg/dL) 249 H Random Glucose 249 H Lactic Acid Calcium 7.9 L Magnesium 1.7 Total Bilirubin 0.5 AST 26 ALT 26 Alkaline Phosphatase 67 Troponin I Total Protein 5.9 Albumin 3.1 Globulin 2.8 Albumin/Globulin Ratio 1.1 Triglycerides 486 H Cholesterol 143 LDL Cholesterol Direct 41 HDL Cholesterol 26 L Venous Blood Potassium 07/23/17 07/23/17 10:24 11:11 WBC RBC Hgb Hct MCV MCH MCHC RDW Plt Count MPV Gran % Lymph % (Auto) [place] % (Auto) Eos % (Auto) Baso % (Auto) Gran # Lymph # [place] # Eos # Baso # pO2 32 VBG pH 7.28 L VBG pCO2 52.0 VBG HCO3 24.4 VBG Total CO2 26.0 VBG O2 Sat (Calc) 66.3 H VBG Base Excess -3.0 L VBG Potassium 4.2 Sodium 137.0 Chloride 104.0 Glucose 346 H Lactate 4.2 H* FiO2 21.0 Potassium Carbon Dioxide Anion Gap BUN Creatinine Est GFR ( Amer) Est GFR (Non-Af Amer) POC Glucose (mg/dL) 278 H Random Glucose Lactic Acid Calcium Magnesium Total Bilirubin AST ALT Alkaline Phosphatase Troponin I Total Protein Albumin Globulin Albumin/Globulin Ratio Triglycerides Cholesterol LDL Cholesterol Direct HDL Cholesterol Venous Blood Potassium 4.2 Assessment & Plan - Assessment and Plan (Free Text) Plan: Assessment Systemic Inflammatory Response Syndrome, R/O sepsis due acute gastroenteritis Cholelithiasis without evidence of acute cholecystitis diverticulosis rheumatoid arthritis DM HTN dyslipidemia S/P appendectomy S/P tonsillectomy S/P hysterectomy S/P right breast excision Plan Started patient on Rocephin and Flagyl pending blood cx, stool cx, stool work up , stool for C. diff. check rapid influenza test reviewed CT chest which does not show pneumonia and only shows old granuloma CT A/P reviewed which shows GB distended but ultrasound of abdomen does not show cholecystitis - liver enzymes and Alk phos is also inconsistent with cholecytitis elevated lactate noted on VBG does not fit clinical picture - should observe patient and repeat lactic acid levels will monitor clinically
[2017-07-23] MEDS: Pantoprazole 40 mg EC Tab PO SCH (14:02)
[2017-07-23] MEDS: cefTRIAXone 1 gm 1 GM/100 ML BAG IVPB SCH (14:04)
--- NOTE | 2017-07-23 15:53 | CP.PCM.CON ---
History of Present Illness - History of Present Illness History of Present Illness: Seen and examined at bedside, chart reviewed. Request for consult is for c/o nausea, diarrhea/epigastric pain. HPI: This is a 72-year-old female with a past medical history of diabetes mellitus, rheumatoid arthritis, diverticulosis, hypertension came to the emergency room for further evaluation of nausea, diarrhea and epigastric pain. The patient reports that this started around 2 PM. The patient recalls that prior to these complaints she had chicken soup at work. Denies any known fever or chills. the patient reports about 10 episode of loose stool, denies melena or bright red blood per rectum. The patient also had dizziness. During this consult the patient reports resolution of epigastric pain, the nausea has decreased and she is having no further episodes of vomiting or diarrhea. On admission the patient is status post code sepsis patient was found to have a elevated lactic acid. She had multiple diagnostic exams. Abdominal ultrasoun done which showed a distended gallbladder no pericholecystic fluid or gallstones noted probable fatty liver, the common bile duct measured 6.7 mm. She also had prior to that a CT scan of abdomen and pelvis with no contrast which reported a questionable cholelithiasis with distended gallbladder and no other acute findings. Nonobstructing right kidney calculus and sigmoid diverticulosis. A CT scan of the head was also done which showed chronic ethmoid sinusitis no intracranial mass hemorrhage or evidence of acute infarct. 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 The patient's last endoscopy and colonoscopy was 3 years [address] Mota, she recalls no acute findings just diverticulosis. Denies any weight loss, anorexia, dysphagia or symptoms of reflux. Past medical history: Sigmoid diverticulosis, GERD in the past, hypertension, diabetes mellitus, rheumatoid arthritis Past surgical history: Hysterectomy, appendectomy, right breast cyst removal that was benign, tonsillectomy Family history: Father: Cardiac disease, son: Diabetes mellitus and [place] Social history: Denies tobacco, EtOH or substance abuse Allergies: No known drug allergies Medication:medications reviewed as per DEC ROS: Systems review took positive finding see HPI Past Patient History - Infectious Disease Hx of Infectious Diseases: None - Tetanus Immunizations Tetanus Immunization: Unknown - Past Medical History & Family History Past Family History: Reviewed and not pertinent - Past Social History Smoking Status: Never Smoked - CARDIAC Hx Cardiac Disorders: Yes Hx Hypercholesterolemia: Yes Hx Hypertension: Yes - PULMONARY Hx Respiratory Disorders: No - NEUROLOGICAL Hx Neurological Disorder: No - HEENT Hx HEENT Problems: No - RENAL Hx Chronic Kidney Disease: No - ENDOCRINE/METABOLIC Hx Endocrine Disorders: Yes Hx Diabetes Mellitus Type 2: Yes - HEMATOLOGICAL/ONCOLOGICAL Hx Blood Disorders: No - INTEGUMENTARY Hx Dermatological Problems: No - MUSCULOSKELETAL/RHEUMATOLOGICAL Hx Falls: No - GASTROINTESTINAL Hx Gastrointestinal Disorders: No - GENITOURINARY/GYNECOLOGICAL Hx Urinary Tract Infection: Yes - PSYCHIATRIC Hx Substance Use: No - SURGICAL HISTORY Hx Surgeries: (tonsillectomy, exc r breast cyst benign) Hx Appendectomy: Yes Hx Hysterectomy: Yes Other/Comment: endoscopy and colonoscopy - ANESTHESIA Hx Anesthesia: Yes Hx Anesthesia Reactions: No Hx Malignant Hyperthermia: No Meds Allergies/Adverse Reactions: Allergies Allergy/AdvReac Type Severity Reaction Status Date / Time No Known Allergies Allergy Verified 03/28/15 22:43 - Medications Medications: Current Medications Acetaminophen (Tylenol 325mg Tab) 650 mg PO Q6 PRN PRN Reason: Fever >100.4 F Amlodipine Besylate (Norvasc) 5 mg PO DAILY [facility] Cholecalciferol (Vitamin D) 1,000 iu PO DAILY [facility] Folic Acid (Folic Acid) 2 mg PO DAILY [facility] Gabapentin (Neurontin) 300 mg PO BID [facility] PRN Reason: Protocol Last Admin: 07/22/17 19:00 Dose: 300 mg Metronidazole (Flagyl) 500 mg in 100 mls @ 100 mls/hr IVPB Q8 [facility] PRN Reason: Protocol Last Admin: 07/23/17 06:31 Dose: 100 mls/hr Ceftriaxone Sodium (Rocephin 1 Gram Ivpb) 1 gm in 100 mls @ 100 mls/hr IVPB DAILY [facility] PRN Reason: Protocol Sodium Chloride (Sodium Chloride 0.9%) 1,000 mls @ 110 mls/hr IV .Q9H6M [facility] Last Admin: 07/23/17 05:50 Dose: Not Given Insulin Human Regular (Humulin R) 0 units SC ACHS [facility] PRN Reason: Protocol Last Admin: 07/23/17 09:20 Dose: 3 units Losartan Potassium (Cozaar) 50 mg PO DAILY [facility] Meloxicam (Mobic) 7.5 mg PO DAILY [facility] PRN Reason: Pain Ondansetron HCl (Zofran Inj) 4 mg IVP Q6 PRN PRN Reason: Nausea/Vomiting Pantoprazole Sodium (Protonix Ec Tab) 40 mg PO DAILY [facility] Physical Exam - Constitutional Appears: No Acute Distress - Head Exam Head Exam: NORMOCEPHALIC - Eye Exam Eye Exam: Normal appearance. absent: Scleral icterus - ENT Exam ENT Exam: Mucous Membranes Moist - Neck Exam Neck exam: Positive for: Normal Inspection - Respiratory Exam Respiratory Exam: Clear to Auscultation Bilateral, NORMAL BREATHING PATTERN. absent: Rales, Wheezes, Respiratory Distress - Cardiovascular Exam Cardiovascular Exam: +S1, +S2 - GI/Abdominal Exam GI & Abdominal Exam: Normal Bowel Sounds, Soft. absent: Distended, Guarding, Organomegaly, Rebound, Tenderness - Extremities Exam Extremities exam: Positive for: pedal pulses present. Negative for: calf tenderness, pedal edema - Neurological Exam Neurological exam: Alert, Oriented x3 - Skin Skin Exam: Dry, Warm Results - Vital Signs Recent Vital Signs: Last Vital Signs Temp 98.3 F 07/23/17 07:45 Pulse 78 07/23/17 07:45 Resp 18 07/23/17 07:45 BP 150/82 07/23/17 07:45 Pulse Ox 95 07/23/17 07:45 - Labs Result Diagrams: 07/23/17 06:10 07/23/17 06:10 Labs: Laboratory Results - last 24 hr 07/22/17 07/22/17 07/22/17 17:55 17:55 19:55 WBC RBC Hgb Hct MCV MCH MCHC RDW Plt Count MPV Gran % Lymph % (Auto) [place] % (Auto) Eos % (Auto) Baso % (Auto) Gran # Lymph # [place] # Eos # Baso # pO2 41 VBG pH 7.31 L VBG pCO2 48.0 VBG HCO3 24.2 VBG Total CO2 25.7 VBG O2 Sat (Calc) 80.5 H VBG Base Excess -2.5 L VBG Potassium 4.0 Sodium 137.0 Chloride 106.0 Glucose 242 H Lactate 3.0 H FiO2 21.0 Potassium Carbon Dioxide Anion Gap BUN Creatinine Est GFR ( Amer) Est GFR (Non-Af Amer) POC Glucose (mg/dL) Random Glucose Hemoglobin A1c 11.5 H Lactic Acid 2.8 H Calcium Magnesium Total Bilirubin AST ALT Alkaline Phosphatase Troponin I Total Protein Albumin Globulin Albumin/Globulin Ratio Triglycerides Cholesterol LDL Cholesterol Direct HDL Cholesterol Venous Blood Potassium 4.0 07/22/17 07/22/17 07/23/17 19:55 21:03 01:40 WBC RBC Hgb Hct MCV MCH MCHC RDW Plt Count MPV Gran % Lymph % (Auto) [place] % (Auto) Eos % (Auto) Baso % (Auto) Gran # Lymph # [place] # Eos # Baso # pO2 VBG pH VBG pCO2 VBG HCO3 VBG Total CO2 VBG O2 Sat (Calc) VBG Base Excess VBG Potassium Sodium Chloride Glucose Lactate FiO2 Potassium Carbon Dioxide Anion Gap BUN Creatinine Est GFR ( Amer) Est GFR (Non-Af Amer) POC Glucose (mg/dL) 252 H Random Glucose Hemoglobin A1c Lactic Acid Calcium Magnesium Total Bilirubin AST ALT Alkaline Phosphatase Troponin I < 0.01 < 0.01 Total Protein Albumin Globulin Albumin/Globulin Ratio Triglycerides Cholesterol LDL Cholesterol Direct HDL Cholesterol Venous Blood Potassium 07/23/17 07/23/17 07/23/17 06:10 06:10 06:10 WBC 5.4 D RBC 4.10 Hgb 11.8 L D Hct 36.3 MCV 88.5 MCH 28.8 MCHC 32.5 RDW 14.2 Plt Count 185 MPV 10.7 Gran % 62.8 Lymph % (Auto) 26.0 [place] % (Auto) 9.5 H Eos % (Auto) 1.3 L Baso % (Auto) 0.4 Gran # 3.39 Lymph # 1.4 [place] # 0.5 Eos # 0.1 Baso # 0.02 pO2 61 H VBG pH 7.32 VBG pCO2 46.0 VBG HCO3 23.7 VBG Total CO2 25.1 VBG O2 Sat (Calc) 94.9 H VBG Base Excess -2.6 L VBG Potassium 3.8 Sodium 137.0 139 Chloride 107.0 107 Glucose 271 H Lactate 3.2 H FiO2 21.0 Potassium 4.2 Carbon Dioxide 23 Anion Gap 13 BUN 10 Creatinine 0.6 Est GFR ( Amer) > 60 Est GFR (Non-Af Amer) > 60 POC Glucose (mg/dL) Random Glucose 249 H Hemoglobin A1c Lactic Acid Calcium 7.9 L Magnesium 1.7 Total Bilirubin 0.5 AST 26 ALT 26 Alkaline Phosphatase 67 Troponin I Total Protein 5.9 Albumin 3.1 Globulin 2.8 Albumin/Globulin Ratio 1.1 Triglycerides 486 H Cholesterol 143 LDL Cholesterol Direct 41 HDL Cholesterol 26 L Venous Blood Potassium 3.8 07/23/17 07/23/17 07/23/17 07:17 10:24 11:11 WBC RBC Hgb Hct MCV MCH MCHC RDW Plt Count MPV Gran % Lymph % (Auto) [place] % (Auto) Eos % (Auto) Baso % (Auto) Gran # Lymph # [place] # Eos # Baso # pO2 32 VBG pH 7.28 L VBG pCO2 52.0 VBG HCO3 24.4 VBG Total CO2 26.0 VBG O2 Sat (Calc) 66.3 H VBG Base Excess -3.0 L VBG Potassium 4.2 Sodium 137.0 Chloride 104.0 Glucose 346 H Lactate 4.2 H* FiO2 21.0 Potassium Carbon Dioxide Anion Gap BUN Creatinine Est GFR ( Amer) Est GFR (Non-Af Amer) POC Glucose (mg/dL) 249 H 278 H Random Glucose Hemoglobin A1c Lactic Acid Calcium Magnesium Total Bilirubin AST ALT Alkaline Phosphatase Troponin I Total Protein Albumin Globulin Albumin/Globulin Ratio Triglycerides Cholesterol LDL Cholesterol Direct HDL Cholesterol Venous Blood Potassium 4.2 Assessment & Plan - Assessment and Plan (Free Text) Assessment: Assessment: Nausea/vomiting/acute diarrhea, consider acute gastroenteritis Chronic sinusitis SIRRS, r/o Sepsis Diverticulosis History of diabetes mellitus Rheumatoid arthritis Hypertension Plan: On clear liquid diet, advance as tolerated Pending stool studies C. difficile &culture Continue GI prophylaxis DVT prophylaxis IV Antibiotics on ceftriaxone and Flagyl ID follow-up Thank you for this consult and for allowing us to participate in your patient's care, further recommendations based upon clinical course. Seen and discussed with Dr. Anaya.
--- NOTE | 2017-07-23 16:39 | CP.PCM.PN ---
<Rodrigo Ramos - Last Filed: 07/23/17 16:36> Subjective - Date & Time of Evaluation Date of Evaluation: 07/23/17 Time of Evaluation: 08:30 - Subjective Subjective: Medicine Progress note. Dr. Duvall Pt seen and examined at bedside. No acute events overnight. Patient states that her epigastric pain has resolved. Nausea is improved. No vomiting. Diarrhea has improved and reports no further episodes. States that her dizziness is improved. Ambulating within her room. Objective - Vital Signs/Intake and Output Vital Signs (last 24 hours): Temp Pulse Resp BP Pulse Ox 98.3 F 78 18 150/82 95 07/23/17 07:45 07/23/17 13:58 07/23/17 07:45 07/23/17 13:58 07/23/17 07:45 Intake and Output: 07/23/17 07/23/17 06:59 18:59 Intake Total 240 660 Balance 240 660 - Medications Medications: Current Medications Acetaminophen (Tylenol 325mg Tab) 650 mg PO Q6 PRN PRN Reason: Fever >100.4 F Last Admin: 07/23/17 14:11 Dose: 650 mg Amlodipine Besylate (Norvasc) 5 mg PO DAILY [facility] Last Admin: 07/23/17 13:58 Dose: 5 mg Cholecalciferol (Vitamin D) 1,000 iu PO DAILY [facility] Last Admin: 07/23/17 14:05 Dose: 1,000 iu Folic Acid (Folic Acid) 2 mg PO DAILY [facility] Last Admin: 07/23/17 14:01 Dose: 2 mg Gabapentin (Neurontin) 300 mg PO BID [facility] PRN Reason: Protocol Last Admin: 07/23/17 13:57 Dose: 300 mg Metronidazole (Flagyl) 500 mg in 100 mls @ 100 mls/hr IVPB Q8 [facility] PRN Reason: Protocol Last Admin: 07/23/17 14:03 Dose: 100 mls/hr Ceftriaxone Sodium (Rocephin 1 Gram Ivpb) 1 gm in 100 mls @ 100 mls/hr IVPB DAILY [facility] PRN Reason: Protocol Last Admin: 07/23/17 14:04 Dose: 100 mls/hr Sodium Chloride (Sodium Chloride 0.9%) 1,000 mls @ 110 mls/hr IV .Q9H6M [facility] Last Admin: 07/23/17 14:05 Dose: 110 mls/hr Insulin Human Regular (Humulin R) 0 units SC ACHS [facility] PRN Reason: Protocol Last Admin: 07/23/17 09:20 Dose: 3 units Losartan Potassium (Cozaar) 50 mg PO DAILY [facility] Last Admin: 07/23/17 13:58 Dose: 50 mg Meloxicam (Mobic) 7.5 mg PO DAILY PRN PRN Reason: Pain Ondansetron HCl (Zofran Inj) 4 mg IVP Q6 PRN PRN Reason: Nausea/Vomiting Pantoprazole Sodium (Protonix Ec Tab) 40 mg PO DAILY [facility] Last Admin: 07/23/17 14:02 Dose: 40 mg - Labs Labs: 07/23/17 06:10 07/23/17 06:10 PT 10.6 Seconds (9.9-11.8) 07/22/17 13:30 INR 0.98 (0.93-1.08) 07/22/17 13:30 APTT 26.6 Seconds (23.7-30.8) 07/22/17 13:30 - Constitutional Appears: Well, No Acute Distress - Head Exam Head Exam: ATRAUMATIC, NORMAL INSPECTION, NORMOCEPHALIC - Eye Exam Eye Exam: EOMI, Normal appearance - ENT Exam ENT Exam: Mucous Membranes Moist - Neck Exam Neck Exam: Full ROM - Respiratory Exam Respiratory Exam: Clear to Ausculation Bilateral, NORMAL BREATHING PATTERN. absent: Accessory Muscle Use, Decreased Breath Sounds, Rales, Rhonchi, Wheezes, Respiratory Distress - Cardiovascular Exam Cardiovascular Exam: REGULAR RHYTHM, RRR, +S1, +S2. absent: JVD - GI/Abdominal Exam GI & Abdominal Exam: Soft, Normal Bowel Sounds. absent: Distended, Firm, Guarding, Rigid, Tenderness, Rebound - Extremities Exam Extremities Exam: Full ROM. absent: Calf Tenderness, Pedal Edema - Back Exam Back Exam: NORMAL INSPECTION - Neurological Exam Neurological Exam: Alert, Awake, Oriented x3 - Psychiatric Exam Psychiatric exam: Normal Affect, Normal Mood - Skin Skin Exam: Dry, Intact, Normal Color, Warm Assessment and Plan - Assessment and Plan (Free Text) Assessment: 72yo F with PMHx of HLD, DM, HTN, RA, sigmoid diverticulosis here for evaluation of nausea, diarrhea and epigastric pain 1. SIRS r/o sepsis No leukocytosis Tachycardia no hypotension Lactate persistently elevated repeat lactate in AM f/u procalcitonin CXR negative CT Chest - old granulomatous disease. No acute findings CT Abd/Pelvis - no acute infections process UA negative Blood cxs NGTD f/u stool studies IVF IV Abx: Ethan Staley ID consulted, recs appreciated. 2. Nausea, Diarrhea, Dizziness likely mild dehydration consider gastroenteritis CT head - mild chronic sinusitis. negative acute pathology CT Abd/Pelvis- cholelithiasis, distended GB, no evidence of cholecystitis. Upon my review, I do not appreciate any cholelithiasis. This is consistent with Abd US. Abd US - No cholelithiasis. No perichole fluid Zofran continue IVF ADAT as per GI recs f/u Stool studies GI consulted, appreciate recs f/u AM labs 3. Epigastric pain Surgery following No plans for acute surgical intervention Abd US - no evidence of cholecystitis. No cholelithiasis Serial Trops negative. ACS ruled out. EKG - no acute findings on Tele 4. Hx of DM HBa1c - 11.5 Accuchecks hold home meds ISS 5. Hx of HTN Continue home meds Losartan instead of olmesartan VS Q6 6. Hx of RA continue mobic prn 7. Hx of HLD TG - 486 continue home meds Diet modification discussed with patient Dietitian silvano and recs for patient requested 8. PPx Protonix SCDs Discussed case with Dr. Jadiel Ramos PGY1 <Jacki Duvall - Last Filed: 07/23/17 17:54> Objective - Vital Signs/Intake and Output Vital Signs (last 24 hours): Temp Pulse Resp BP Pulse Ox 98.3 F 78 18 150/82 95 07/23/17 07:45 07/23/17 13:58 07/23/17 07:45 07/23/17 13:58 07/23/17 07:45 Intake and Output: 07/23/17 07/23/17 06:59 18:59 Intake Total 240 660 Balance 240 660 - Medications Medications: Current Medications Acetaminophen (Tylenol 325mg Tab) 650 mg PO Q6 PRN PRN Reason: Fever >100.4 F Last Admin: 07/23/17 14:11 Dose: 650 mg Amlodipine Besylate (Norvasc) 5 mg PO DAILY [facility] Last Admin: 07/23/17 13:58 Dose: 5 mg Cholecalciferol (Vitamin D) 1,000 iu PO DAILY [facility] Last Admin: 07/23/17 14:05 Dose: 1,000 iu Fenofibrate (Tricor) 145 mg PO DAILY [facility] Folic Acid (Folic Acid) 2 mg PO DAILY [facility] Last Admin: 07/23/17 14:01 Dose: 2 mg Gabapentin (Neurontin) 300 mg PO BID [facility] PRN Reason: Protocol Last Admin: 07/23/17 13:57 Dose: 300 mg Metronidazole (Flagyl) 500 mg in 100 mls @ 100 mls/hr IVPB Q8 [facility] PRN Reason: Protocol Last Admin: 07/23/17 14:03 Dose: 100 mls/hr Ceftriaxone Sodium (Rocephin 1 Gram Ivpb) 1 gm in 100 mls @ 100 mls/hr IVPB DAILY [facility] PRN Reason: Protocol Last Admin: 07/23/17 14:04 Dose: 100 mls/hr Sodium Chloride (Sodium Chloride 0.9%) 1,000 mls @ 110 mls/hr IV .Q9H6M [facility] Last Admin: 07/23/17 14:05 Dose: 110 mls/hr Insulin Human Regular (Humulin R) 0 units SC ACHS [facility] PRN Reason: Protocol Last Admin: 07/23/17 09:20 Dose: 3 units Losartan Potassium (Cozaar) 50 mg PO DAILY [facility] Last Admin: 07/23/17 13:58 Dose: 50 mg Meloxicam (Mobic) 7.5 mg PO DAILY [facility] PRN Reason: Pain Ondansetron HCl (Zofran Inj) 4 mg IVP Q6 PRN PRN Reason: Nausea/Vomiting Pantoprazole Sodium (Protonix Ec Tab) 40 mg PO DAILY [facility] Last Admin: 07/23/17 14:02 Dose: 40 mg - Labs Labs: 07/23/17 06:10 07/23/17 06:10 PT 10.6 Seconds (9.9-11.8) 07/22/17 13:30 INR 0.98 (0.93-1.08) 07/22/17 13:30 APTT 26.6 Seconds (23.7-30.8) 07/22/17 13:30 Attending/Attestation - Attestation I have personally seen and examined this patient.: Yes I have fully participated in the care of the patient.: Yes I have reviewed all pertinent clinical information, including history, physical exam and plan: Yes Notes (Text): 07/23/17 17:50 72 year old female with past medical history of hypertension and diabetes who presents with nausea, epigastric pain and diarrhea x 1 day. She was also found to have SIRS with elevated lactate. Continue with antibiotics while awaiting cultures. ID evaluation was requested. Will continue to hold her metformin for now. A1c is 11.4. Will discuss with patient regarding possibly starting levemir if she is agreeable. CT abd/pelvis showed ?cholelithiasis with distended gallbladder. However US abdomen was negative for cholelithiasis. Surgery and GI evaluation were appreciated. Will follow up with recommendations. Her symptoms have improved and her diet was advanced. Jacki Duvall MD Hospitalist.
[2017-07-23 17:56] VITALS: O2SAT 97
[2017-07-23] MEDS ORDERED: Insulin Detemir 100 units/ml Vial (Levemir) SC SCH (22:00)
[2017-07-24] MEDS: Sodium Chloride 0.9% 1,000 ML IV SCH (05:56)
[2017-07-24] MEDS: metroNIDAZOLE IV 500 mg/100 ml 500 MG/100 ML BAG IVPB SCH ×2 (05:56→14:07)
[2017-07-24 06:49] LABS: BASO # 0.02 K/mm3 (0.0-2.0); BASO % 0.4 % (0.0-3.0); EOS # 0.2 (0.0-0.7); GRAN # 3.76 (1.4-6.5); GRAN % 66.4 % (50.0-68.0); HEMATOCRIT 35.4 % (36.0-48.0); LYMPH # 1.2 (1.2-3.4); LYMPH % 21.4 % (22.0-35.0); MEAN CELL VOLUME 89.2 fl (80.0-105.0); MEAN CORPUSCULAR HEMOGLOBIN 28.7 pg (25.0-35.0); MEAN CORPUSCULAR HGB CONC 32.2 g/dl (31.0-37.0); MONO # 0.5 (0.1-0.6); MONO % 8.8 % (1.0-6.0); RED CELL DISTRIBUTION WIDTH 14.2 % (11.5-14.5); WHITE BLOOD COUNT 5.7 10^3/ul (4.5-11.0)
[2017-07-24 06:54] LABS: ALB/GLOB RATIO 1.1 (1.1-1.8); ALKALINE PHOSPHATASE 66 U/L (38-126); ALT/SGPT 31 U/L (7-56); AST/SGOT 27 U/L (14-36); BILIRUBIN,TOTAL 0.3 mg/dL (0.2-1.3); BLOOD UREA NITROGEN 8 mg/dL (7-21); CALCIUM 8.1 mg/dL (8.4-10.5); CARBON DIOXIDE 23 mmol/L (21-33); CHLORIDE 107 mmol/L (98-107); GFR AFRICAN-AMERICAN > 60; GLUCOSE,RANDOM 214 mg/dL (70-110); MAGNESIUM 1.5 mg/dL (1.7-2.2); PHOSPHOROUS 2.9 mg/dL (2.5-4.5); POTASSIUM 4.1 mmol/L (3.6-5.0); SODIUM 140 mmol/L (132-148); TOTAL PROTEIN 5.9 g/dL (5.8-8.3)
[2017-07-24] MEDS ORDERED: Magnesium Sulfate 2 GM in Sodium Chloride 0.9% 100 ML IVPB ONE (07:06)
[2017-07-24 07:36] LABS: VENOUS BLOOD GAS BASE EXCESS -1.3 mmol/L (0.0-2.0); VENOUS BLOOD PH 7.34 (7.32-7.43)
[2017-07-24] MEDS: Insulin Regular 1 UNITS/0.01 ML ML SC SCH ×3 (09:24→17:40)
[2017-07-24] MEDS: Pantoprazole 40 mg EC Tab PO SCH (09:26)
[2017-07-24] MEDS: cefTRIAXone 1 gm 1 GM/100 ML BAG IVPB SCH (09:27)
[2017-07-24 15:33] LABS: VENOUS BLOOD GAS BASE EXCESS -2.2 mmol/L (0.0-2.0); VENOUS BLOOD PH 7.36 (7.32-7.43)
--- NOTE | 2017-07-24 15:49 | CP.PCM.DIS ---
Provider - Provider Date of Admission: 07/22/17 15:04 Attending physician: Jacki Duvall MD Primary care physician: Fer Alvarado MD Consults: GI: Jaclyn ID: Carole Time Spent in preparation of Discharge (in minutes): 45 Hospital Course - Lab Results Lab Results: Most Recent Lab Values WBC 5.7 10^3/ul (4.5-11.0) 07/24/17 06:00 RBC 3.97 10^6/uL (3.5-6.1) 07/24/17 06:00 Hgb 11.4 g/dL (12.0-16.0) L 07/24/17 06:00 Hct 35.4 % (36.0-48.0) L 07/24/17 06:00 MCV 89.2 fl (80.0-105.0) 07/24/17 06:00 MCH 28.7 pg (25.0-35.0) 07/24/17 06:00 MCHC 32.2 g/dl (31.0-37.0) 07/24/17 06:00 RDW 14.2 % (11.5-14.5) 07/24/17 06:00 Plt Count 188 10^3/uL (120.0-450.0) 07/24/17 06:00 MPV 10.0 fl (7.0-11.0) 07/24/17 06:00 Gran % 66.4 % (50.0-68.0) 07/24/17 06:00 Lymph % (Auto) 21.4 % (22.0-35.0) L 07/24/17 06:00 [place] % (Auto) 8.8 % (1.0-6.0) H 07/24/17 06:00 Eos % (Auto) 3.0 % (1.5-5.0) 07/24/17 06:00 Baso % (Auto) 0.4 % (0.0-3.0) 07/24/17 06:00 Gran # 3.76 (1.4-6.5) 07/24/17 06:00 Lymph # 1.2 (1.2-3.4) 07/24/17 06:00 [place] # 0.5 (0.1-0.6) 07/24/17 06:00 Eos # 0.2 (0.0-0.7) 07/24/17 06:00 Baso # 0.02 K/mm3 (0.0-2.0) 07/24/17 06:00 PT 10.6 Seconds (9.9-11.8) 07/22/17 13:30 INR 0.98 (0.93-1.08) 07/22/17 13:30 APTT 26.6 Seconds (23.7-30.8) 07/22/17 13:30 pO2 64 mm/Hg (30-55) H 07/24/17 15:09 VBG pH 7.36 (7.32-7.43) 07/24/17 15:09 VBG pCO2 41.0 (40-60) 07/24/17 15:09 VBG HCO3 23.2 mmol/l (21-28) 07/24/17 15:09 VBG Total CO2 24.5 mmol.L (22-28) 07/24/17 15:09 VBG O2 Sat (Calc) 96.0 % (40-65) H 07/24/17 15:09 VBG Base Excess -2.2 mmol/L (0.0-2.0) L 07/24/17 15:09 VBG Potassium 5.8 mmol/L (3.6-5.2) H 07/24/17 15:09 Sodium 137.0 mmol/L (132-148) 07/24/17 15:09 Chloride 106.0 mmol/L (98-107) 07/24/17 15:09 Glucose 319 mg/dl (65-105) H 07/24/17 15:09 Lactate 4.5 mmol/L (0.7-2.1) H* 07/24/17 15:09 FiO2 21.0 % 07/24/17 15:09 Sodium 140 mmol/L (132-148) 07/24/17 06:00 Potassium 4.1 mmol/L (3.6-5.0) 07/24/17 06:00 Chloride 107 mmol/L (98-107) 07/24/17 06:00 Carbon Dioxide 23 mmol/L (21-33) 07/24/17 06:00 Anion Gap 14 (10-20) 07/24/17 06:00 BUN 8 mg/dL (7-21) 07/24/17 06:00 Creatinine 0.7 mg/dL (0.5-1.4) 07/24/17 06:00 Est GFR ( Amer) > 60 07/24/17 06:00 Est GFR (Non-Af Amer) > 60 07/24/17 06:00 POC Glucose (mg/dL) 234 mg/dL (65-110) H 07/24/17 12:00 Random Glucose 214 mg/dL (70-110) H 07/24/17 06:00 Hemoglobin A1c 11.5 % (4.2-6.5) H 07/22/17 19:55 Lactic Acid 2.8 mmol/L (0.7-2.1) H 07/24/17 06:00 Calcium 8.1 mg/dL (8.4-10.5) L 07/24/17 06:00 Phosphorus 2.9 mg/dL (2.5-4.5) 07/24/17 06:00 Magnesium 1.5 mg/dL (1.7-2.2) L 07/24/17 06:00 Total Bilirubin 0.3 mg/dL (0.2-1.3) 07/24/17 06:00 AST 27 U/L (14-36) 07/24/17 06:00 ALT 31 U/L (7-56) 07/24/17 06:00 Alkaline Phosphatase 66 U/L (38-126) 07/24/17 06:00 Lactate Dehydrogenase 457 U/L (333-699) 07/22/17 13:30 Total Creatine Kinase 97 U/L (35-230) 07/22/17 13:30 Troponin I < 0.01 ng/mL 07/23/17 01:40 NT-Pro-B Natriuret Pep 99.0 pg/mL (0-450) 07/22/17 13:30 Total Protein 5.9 g/dL (5.8-8.3) 07/24/17 06:00 Albumin 3.1 g/dL (3.0-4.8) 07/24/17 06:00 Globulin 2.8 gm/dL 07/24/17 06:00 Albumin/Globulin Ratio 1.1 (1.1-1.8) 07/24/17 06:00 Triglycerides 486 mg/dL (35-160) H 07/23/17 06:10 Cholesterol 143 mg/dL (130-200) 07/23/17 06:10 LDL Cholesterol Direct 41 mg/dL (0-129) 07/23/17 06:10 HDL Cholesterol 26 mg/dL (29-60) L 07/23/17 06:10 Lipase 151 U/L (23-300) 07/22/17 13:30 Procalcitonin 0.08 NG/ML (0.19-0.49) L 07/24/17 06:00 Venous Blood Potassium 5.8 mmol/L (3.6-5.2) H 07/24/17 15:09 Urine Color Yellow (YELLOW) 07/22/17 14:20 Urine Appearance Sl cloudy (CLEAR) 07/22/17 14:20 Urine pH 5.5 (4.7-8.0) 07/22/17 14:20 Ur Specific [place] 1.025 (1.005-1.035) 07/22/17 14:20 Urine Protein Trace mg/dL (<30 mg/dL) H 07/22/17 14:20 Urine Glucose (UA) 500 mg/dL (NEGATIVE) H 07/22/17 14:20 Urine Ketones Trace mg/dL (NEGATIVE) H 07/22/17 14:20 Urine Blood Negative (NEGATIVE) 07/22/17 14:20 Urine Nitrate Negative (NEGATIVE) 07/22/17 14:20 Urine Bilirubin Negative (NEGATIVE) 07/22/17 14:20 Urine Urobilinogen 0.2 E.U./dL (<1 E.U./dL) 07/22/17 14:20 Ur Leukocyte Esterase Negative [place]/uL (NEGATIVE) 07/22/17 14:20 Urine RBC 0 - 2 /hpf (0-2) 07/22/17 14:20 Urine WBC 0 - 2 /hpf (0-6) 07/22/17 14:20 Ur Epithelial Cells 0 - 2 /hpf (0-5) 07/22/17 14:20 Urine Bacteria Trace (NEG) 07/22/17 14:20 Hyaline Casts 0 - 2 /hpf 07/22/17 14:20 - Hospital Course Hospital Course: Upon Admission: 72yo F with PMHx of HTN, DM, RA, Sigmoid diverticulosis here for evaluation of nausea, diarrhea, and epigastric pain. Pain resolved soon after arrival to ED. Serial troponins negative, EKG with no acute findings and ACS was ruled out. Patient was found to be febrile 100.6F rectal, Tachycardic and had elevated lactate. Sepsis protocol was initiated, broad spectrum antibiotics and fluids administration. CT chest with evidence of old granulomatous disease but no acute findings. CT Abd/Pelvis with distended GB with ?cholelitiasis. Abd US - no cholelithiasis and no evidence of acute Prema. Surgery consulted. No plans for surgery. GI consulted. Patient was found to have no acidosis, no metabolic derangements however did have persistently elevated lactate. Patients symptoms resolved and she was tolerating her diet. Patient's HbA1c was 11.5, all oral hypoglycemics were stopped including metformin. She was started on Levemir and patient stated that she was comfortable administering her new insulin regimen. She was discharged in stable condition on PO Abx: Vantin, Flagyl. She is to follow up with her PMD. All results and recommendations were discussed with patient and family. Patient expressed her understanding and agreed with plan. All questions and concerns were addressed. 1. SIRS/elevated lactate. No evidence of sepsis. PO Abx: Vantin, Flagyl 2. Hx of DM. HbA1c 11.5. Started on Levemir. Discontinue oral hypoglycemics 3. Hx of HTN. Continue home meds 4. Hx of RA. Continue home meds Upon Discharge: Patient cleared for discharge as per Dr. Duvall 1. Follow up with your PMD in 3 days. Bring log of your blood sugar checks 4 times per day. 2. Discontinue taking all oral diabetic meds 3. Continue taking other meds as directed 4. Take antibiotics as prescribed to completion 5. Take Levemir as directed 6. Return to the ED with any concerning symptoms New prescriptions: 1. Levimir 8U SC HS #1vial/0 2. Vantin 200mg PO Q12 #14/0 3. Flagyl 500mg PO Q8 #21/0 Discharge Exam - Head Exam Head Exam: ATRAUMATIC, NORMAL INSPECTION, NORMOCEPHALIC - Eye Exam Eye Exam: EOMI, Normal appearance - ENT Exam ENT Exam: Mucous Membranes Moist - Respiratory Exam Respiratory Exam: Clear to PA & Lateral. absent: Rales, Rhonchi, Wheezes - Cardiovascular Exam Cardiovascular Exam: RRR, +S1, +S2. absent: JVD - GI/Abdominal Exam GI & Abdominal Exam: Soft. absent: Distended, Firm, Guarding, Hernia, Rebound, Rigid, Tenderness - Extremities Exam Extremities exam: normal inspection - Neurological Exam Neurological exam: Alert, CN II-XII Intact, Oriented x3 - Psychiatric Exam Psychiatric exam: Normal Affect, Normal Mood - Skin Skin Exam: Dry, Intact, Normal Color, Warm Discharge Plan - Discharge Medications Prescriptions: Cefpodoxime [Vantin] 200 mg PO Q12 #14 tab Insulin Detemir [Levemir] 8 units SC HS #1 vial metroNIDAZOLE [Flagyl] 500 mg PO Q8 #21 tab - Follow Up Plan Condition: GOOD Disposition: HOME/ ROUTINE Instructions: Giving an Insulin Injection (DC), Sepsis (ED), Pen Devices for Insulin Administration (DC) Additional Instructions: Patient cleared for discharge as per Dr. Duvall 1. Follow up with your PMD in 3 days. Bring log of your blood sugar checks 4 times per day. 2. Discontinue taking all oral diabetic meds 3. Continue taking other meds as directed 4. Take antibiotics as prescribed to completion 5. Take Levemir as directed 6. Return to the ED with any concerning symptoms New prescriptions: 1. Levimir 8U SC HS #1vial/0 2. Vantin 200mg PO Q12 #14/0 3. Flagys 500mg PO Q8 #21/0 Referrals: Fer Alvarado MD [Primary Care Provider] -
[2017-07-24 17:41] VITALS: BP 168/98
[2017-07-24 17:50] VITALS: PULSE 117; RESP 19; TEMP 97.2
--- NOTE | 2017-07-24 19:52 | PN ---
SUBJECTIVE: The patient is in bed, in no acute distress, nontoxic. PHYSICAL EXAMINATION: VITAL SIGNS: Temperature is 98, blood pressure is 130/90, respiratory rate of 16. HEENT: Unremarkable. NECK: Supple. LUNGS: Decreased breath sounds. HEART: Normal S1 and S2. ABDOMEN: Soft, nontender. LABORATORY DATA: Reveals a white count of 5.7, hemoglobin of 11, platelets of 188. Coagulation is noted. BUN of 8, creatinine of 0.5, procalcitonin is 0.08. Urinalysis is noted. Blood cultures and urine cultures are negative. ASSESSMENT AND PLAN: This is a 72-year-old female doing well, tolerating her diet with diverticulosis, rheumatoid arthritis, diabetes, hypertension, dyslipidemia, history of appendectomy, history of tonsillectomy, hysterectomy and who had systemic inflammatory response syndrome due to gastroenteritis and cholelithiasis without any evidence of cholecystitis and diverticulitis and on Rocephin and Flagyl, and no stool cultures available. We will discontinue the IV Flagyl and IV ceftriaxone and switch to p.o. Flagyl and p.o. Vantin for a total of 7 days. The patient should have close followup with all consultants as an outpatient to continue to completing the remainder of the workup. Alfa Arce MD
[2017-07-24] MEDS ORDERED: Cefpodoxime (Vantin) 200 mg Tab PO SCH (22:00)
--- NOTE | 2017-07-25 00:06 | CP.PCM.PN ---
Subjective - Date & Time of Evaluation Date of Evaluation: 07/24/17 Time of Evaluation: 13:00 Objective - Vital Signs/Intake and Output Vital Signs (last 24 hours): Temp Pulse Resp BP Pulse Ox 97.2 F L 117 H 19 168/98 H 97 07/24/17 17:50 07/24/17 17:50 07/24/17 17:50 07/24/17 17:50 07/24/17 17:50 Intake and Output: 07/24/17 07/25/17 18:59 06:59 Intake Total 120 Balance 120 - Labs Labs: 07/24/17 06:00 07/24/17 06:00 PT 10.6 Seconds (9.9-11.8) 07/22/17 13:30 INR 0.98 (0.93-1.08) 07/22/17 13:30 APTT 26.6 Seconds (23.7-30.8) 07/22/17 13:30 Assessment and Plan - Assessment and Plan (Free Text) Assessment: p
== END 2017-07-24 20:04 | disposition home or self-care (01) | DRG 392 ==
LOC: ED 12:36 → ERH 15:04 → 3RNO 18:52
PROVIDERS: ADMIT Internal Medicine; ATTEND Internal Medicine
DX: K52.9 Noninfective gastroenteritis and colitis, unspecified (principal); R65.10 Systemic inflammatory response syndrome (SIRS) of non-infectious origin without acute organ dysfunction; K80.20 Calculus of gallbladder without cholecystitis without obstruction; K57.30 Diverticulosis of large intestine without perforation or abscess without bleeding; E86.0 Dehydration; E11.9 Type 2 diabetes mellitus without complications; M06.9 Rheumatoid arthritis, unspecified; I10 Essential (primary) hypertension; N20.0 Calculus of kidney; J32.2 Chronic ethmoidal sinusitis; E78.5 Hyperlipidemia, unspecified; K21.9 Gastro-esophageal reflux disease without esophagitis; E78.00 Pure hypercholesterolemia, unspecified; Z79.84 Long term (current) use of oral hypoglycemic drugs

== ENCOUNTER 2017-09-24 07:28 | Day surgery (SDC) | payer MEDICARE ==
[2017-09-17 16:09] VITALS: BMI 26.6
[2017-09-24] MEDS ORDERED: Sodium Chloride 0.9% 1,000 ML IV SCH (09:45)
[2017-09-24] MEDS ORDERED: Propofol 10 mg/ml Inj (20 ML) ONE (09:47)
[2017-09-24 11:05] VITALS: BP 128/81; PULSE 85; RESP 17; TEMP 97.7; O2SAT 96
== END 2017-09-24 12:04 | disposition home or self-care (01) ==
LOC: ENDO 07:28
PROVIDERS: ATTEND Internal Medicine Gastroenterology
DX: K25.9 Gastric ulcer, unspecified as acute or chronic, without hemorrhage or perforation (principal); K20.9 Esophagitis, unspecified; K62.1 Rectal polyp; K57.30 Diverticulosis of large intestine without perforation or abscess without bleeding; K64.8 Other hemorrhoids
CPT/HCPCS: 43239; 45385; 88305; 88342; J2001; J2704; J3010; J7040 ×2

== ENCOUNTER 2017-12-17 07:20 | Day surgery (SDC) | payer MEDICARE ==
[2017-12-09 13:12] VITALS: BMI 25.0
[2017-12-17] MEDS ORDERED: Simethicone 40 mg/0.6 ml Liquid (30 ml) ONE (08:37)
[2017-12-17] MEDS ORDERED: Propofol 10 mg/ml Inj (20 ML) ONE (09:02)
[2017-12-17] MEDS ORDERED: Lactated Ringer's 1,000 ML IV SCH (09:30)
[2017-12-17 09:44] VITALS: O2SAT 98
[2017-12-17 10:02] VITALS: RESP 16
[2017-12-17 10:57] VITALS: BP 131/64; PULSE 81; TEMP 97.7
== END 2017-12-17 11:40 | disposition home or self-care (01) ==
LOC: ENDO 07:20
PROVIDERS: ATTEND Internal Medicine Gastroenterology
DX: K25.9 Gastric ulcer, unspecified as acute or chronic, without hemorrhage or perforation (principal); K29.50 Unspecified chronic gastritis without bleeding; K31.89 Other diseases of stomach and duodenum
CPT/HCPCS: 43239; 82948; 88305; 88342; J2001; J2704; J3010; J7040; J7120

== ENCOUNTER 2018-05-13 10:16 | Day surgery (SDC) | payer MEDICARE ==
[2018-05-13 11:26] LABS: ALB/GLOB RATIO 1.1 (1.1-1.8); ALBUMIN 4.3 g/dL (3.0-4.8); AMYLASE 79 U/L (35-125); CALCIUM 9.6 mg/dL (8.4-10.5); GAMMA GLUTAMYL TRANSPEPTIDASE 32 U/L (8-78); GFR AFRICAN-AMERICAN > 60; GFR NON-AFRICAN AMERICAN > 60; INR 0.97 (0.93-1.08); LIPASE 229 U/L (23-300); PARTIAL THROMBOPLASTIN TIME 22.6 Seconds (25.1-36.5); PROTHROMBIN TIME 11.1 SECONDS (9.4-12.5)
[2018-05-13 11:34] LABS: BASO # 0.02 K/mm3 (0.0-2.0); BASO % 0.2 % (0.0-3.0); EOS # 0.1 (0.0-0.7); EOS % 1.2 % (1.5-5.0); GRAN # 5.85 (1.4-6.5); HEMOGLOBIN 12.8 g/dL (12.0-16.0); LYMPH # 2.2 (1.2-3.4); LYMPH % 25.3 % (22.0-35.0); MEAN CELL VOLUME 85.3 fl (80.0-105.0); MEAN CORPUSCULAR HEMOGLOBIN 28.6 pg (25.0-35.0); MEAN CORPUSCULAR HGB CONC 33.5 g/dl (31.0-37.0); MEAN PLATELET VOLUME 10.2 fl (7.0-11.0); MONO # 0.5 (0.1-0.6); MONO % 5.3 % (1.0-6.0); RBC 4.48 10^6/uL (3.5-6.1); RED CELL DISTRIBUTION WIDTH 13.4 % (11.5-14.5); WHITE BLOOD COUNT 8.6 10^3/ul (4.5-11.0)
[2018-05-13 11:43] LABS: ALT/SGPT 19 U/L (7-56); AST/SGOT 28 U/L (14-36); BLOOD UREA NITROGEN 15 mg/dL (7-21)
[2018-05-13 11:54] VITALS: RESP 16; BMI 26.6
[2018-05-13] MEDS ORDERED: Propofol 10 mg/ml Inj (20 ML) ONE (12:27)
[2018-05-13] MEDS ORDERED: Sodium Chloride 0.9% 1,000 ML IV SCH (13:00)
[2018-05-13 14:35] VITALS: BP 116/77; PULSE 85; TEMP 97.7; O2SAT 98
== END 2018-05-13 15:54 | disposition home or self-care (01) ==
LOC: ENDO 10:16
PROVIDERS: ATTEND Internal Medicine Gastroenterology
DX: K25.7 Chronic gastric ulcer without hemorrhage or perforation (principal); K29.50 Unspecified chronic gastritis without bleeding; K31.9 Disease of stomach and duodenum, unspecified
CPT/HCPCS: 36415; 43237; 43239; 80053; 82150; 82977; 83690; 85025; 85610; 85730; 88305; 88342; J2001; J2704; J7030; J7040

== ENCOUNTER → 2019-01-06 | Outpatient (CLI) | payer MEDICARE | LOC: RAD 08:47 ==